=== PATIENT | female | born 2000 | race Caucasian/White ===

== ENCOUNTER 2022-02-19 17:05 | Inpatient (IN) ==
[2022-02-19] MEDS ORDERED: LORazepam 1 MG TAB SL STA (17:24)
--- NOTE | 2022-02-19 17:30 | Emergency Department Note ---
Impression & Plan Psychosis ED Provider Note NAME: AME TABOR AGE: 21 SEX: F : 2000 ARRIVES VIA: Walk-In INFORMANT: [Patient] ED PROVIDER(S): [Garcia Pinto MD] CHIEF COMPLAINT: Mental health evaluation HISTORY OF PRESENT ILLNESS: Patient is a 21-year-old female who states that she is extremely stressed. She has not slept in about 3 days, she has not eaten in about 3 days. Patient is from [place] and is back in the [facility] for the start of [facility]. The patient was brought by a friend. The patient is not thinking or acting right as per the friend. The patient states that she has realized that she is too worried about people liking her and being part of her life. Because of this, she has allowed people to treat her poorly. Patient states that she cannot form any real relationships. I did ask the patient if she felt suicidal, she stated that she could not be suicidal because if her dad committed suicide she would . Patient is having a difficult time answering questions and staying focused on the conversation. She does believe she needs hospitalized for her mental health. She admits to using excessive amounts of marijuana. Minimal alcohol use. Given the mental state, no further history obtainable. REVIEW OF SYSTEMS: Obtainable given the mental state. PMHx/PSHx: See Below SOCIAL HISTORY: See Below. PHYSICAL EXAM: GENERAL: Patient is in no acute distress. HEENT: No acute trauma, normocephalic atraumatic, mucous membranes moist, no nasal congestion, no scleral icterus. NECK: No stridor, no adenopathy, no meningismus, trachea is midline. LUNGS: Clear to auscultation bilaterally, no wheeze, no rhonchi, breath sounds equal. HEART: Without murmurs gallops or rubs, regular rate and rhythm. ABDOMEN: Soft, nontender, bowel sounds positive, no peritonitis. EXTREMITIES: No cyanosis or edema, full range of motion of all the joints without pain or difficulty, no signs for acute trauma. NEUROLOGIC: Oriented x 3, no acute motor or sensory deficits, no focal weakness. SKIN: No rash, no jaundice, no diaphoresis. Psychiatric: Cooperative, voluntary, has a very hard time focusing on our conversation. Does not admit to being suicidal. DIFFERENTIAL DIAGNOSIS: Mood disorder, infection, hypoglycemia, psychosis, depression, anxiety, suicidality, electrolyte abnormalities, cardiac sources, intracerebral event, toxicologic etiology, trauma, neurologic event, as well as other pathologies. EMERGENCY DEPARTMENT COURSE/PROCEDURES: MEDICAL DECISION MAKING: There is a very mild leukocytosis, this could certainly be consistent with just the stress of her presentation. There is a normal hemoglobin and platelet count. No renal failure, significant electrolyte abnormality. Bilirubin mildly elevated, the remaining liver enzymes were unremarkable. The patient appeared to be in a euthyroid state. testing was negative. Urinalysis showed contamination. Urine tox was positive for marijuana. Alcohol, Tylenol and aspirin levels were undetectable. COVID test returned negative. The patient presents with some bizarre behavior, she was having a difficult time focusing on our conversation. The patient was felt medically clear for an evaluation by psychiatry. I did give her 1 mg of sublingual Ativan to help with some of her anxiety/stress. Patient is currently voluntary. She appears to be demonstrating a mild psychosis. She is being evaluated by this hospital's psychiatric service. Her disposition is still pending. Patient's case was assumed by Dr. Casey at the change of shift, please see his notes for the patient's final disposition and plan. Past Med/Surg History Medical History No significant medical problems Social History Hx Substance Use: Yes Non-Prescribed Medications: Marijuana Feels Safe at Home: Hesitant to Answer Home Meds Home Medications Medication Instructions Recorded Confirmed amoxicillin 500 mg capsule mg 02/19/22 Results & Data (ED) Vital Signs Vital Signs - 24 hr 02/19/22 17:08 Temperature 36.5 C Temperature Source Temporal Artery Scan Pulse Rate 88 Respiratory Rate 18 Respiratory Effort / Characteristics Non-Labored Respiratory Depth Normal Blood Pressure 134/93 Blood Pressure Mean 106 Blood Pressure Position Sitting Pulse Oximetry 97 Oxygen Delivery Method Room Air Sepsis Recent Fever Within 48 Hours No Sepsis New/Unexplained Change in Mental Status No Sepsis Action Taken by Nursing No Action Required Home Medications Current Medication List: was personally reviewed by me Laboratory Data Attestation: I reviewed the patient's lab results. Result diagrams: 02/19/22 17:35 02/19/22 17:35 Lab Results 02/19/22 02/19/2222 Range/Units 17:35 17:35 17:35 WBC 10.83 H (4.8-10.8) K/ul RBC 4.38 (3.93-5.22) M/uL Hgb 14.0 (12.0-16.0) g/dl Hct 41.7 (34.1-44.9) % MCV 95.2 (80.0-100.0) fL MCH 32.0 (25.0-34.0) pg MCHC 33.6 (32.0-36.0) g/dL RDW Std Deviation 41.3 (36.4-46.3) fL RDW Coeff of Jimmy 11.9 (11.5-14.5) % Plt Count 323 (130-400) K/uL MPV 10.7 (9.4-12.3) fL Immature Gran % (Auto) 0.2 % Neut % (Auto) 80.3 % Lymph % (Auto) 11.4 % Ritchie % (Auto) 7.7 % Eos % (Auto) 0.2 % Baso % (Auto) 0.2 % Neut # (Auto) 8.70 H (1.4-6.5) K/uL Lymph # (Auto) 1.24 (1.2-3.4) K/uL Ritchie # (Auto) 0.83 H (0.24-0.82) K/uL Eos # (Auto) 0.02 (0-0.50) K/uL Baso # (Auto) 0.02 (0-0.2) K/uL Immature Gran # (Auto) 0.02 (0.00-0.02) K/uL Sodium 138 (136-145) mmol/L Potassium 3.5 (3.5-5.1) mmol/L Chloride 104 (98-107) mmol/L Carbon Dioxide 24 (21-32) mmol/L Anion Gap 10 (3-11) BUN 10 (6-23) mg/dl Creatinine 0.71 (0.6-1.2) mg/dl Est Cr Clr Drug Dosing 110.4 ml/min Est GFR ( Amer) 141.1 ml/min Est GFR (Non-Af Amer) 121.8 ml/min BUN/Creatinine Ratio 14.1 (10-20) Glucose 99 (70-99(Fasting)) mg/dl Calcium 9.8 (8.5-10.1) mg/dl Total Bilirubin 1.4 H (0.2-1.0) mg/dl AST 17 (13-39) U/L ALT 20 (7-52) U/L Alkaline Phosphatase 50 (34-104) U/L Total Protein 8.5 H (6.0-8.3) gm/dl Albumin 5.3 H (3.4-5.0) gm/dl Globulin 3.2 (2.5-4.0) gm/dl Albumin/Globulin Ratio 1.7 (0.9-2) TSH (0.300-4.500) uIu/ml HCG, Qual Negative (Negative) Urine Color Urine Appearance (Clear) Urine pH (4.5-7.5) Ur Specific [place] (1.000-1.030) Urine Protein (Negative) Urine Glucose (UA) (Negative) Urine Ketones (Negative) Urine Blood (Negative) Urine Nitrite (Negative) Urine Bilirubin (Negative) Urine Urobilinogen (Negative) Ur Leukocyte Esterase (Negative) Urine WBC (Auto) (0-5) /hpf Urine RBC (Auto) (0-4) /hpf U Hyaline Cast (Auto) (0-5) /lpf U Epithel Cells (Auto) (0-5) /lpf Urine Bacteria (Auto) (Negative) Salicylates (3.0-30) mg/dl Urine Opiates Screen (Neg) Ur Methadone, Qual (Neg) Acetaminophen (10-30) ug/ml Urine Barbiturates (Neg) Ur Phencyclidine (PCP) (Neg) U Amphetamin/Meth Scrn (Neg) MDMA (Ecstasy) Screen (Neg) U Benzodiazepines Scrn (Neg) Ur Cocaine Metabolite (Neg) U Marijuana (THC) Screen (Neg) Ethyl Alcohol mg/dL (<10.0) mg/dl SARS-CoV-2, RNA, NAAT (NEGATIVE) 02/19/22 02/19/22 02/19/22 Range/Units 17:35 17:35 17:35 WBC (4.8-10.8) K/ul RBC (3.93-5.22) M/uL Hgb (12.0-16.0) g/dl Hct (34.1-44.9) % MCV (80.0-100.0) fL MCH (25.0-34.0) pg MCHC (32.0-36.0) g/dL RDW Std Deviation (36.4-46.3) fL RDW Coeff of Jimmy (11.5-14.5) % Plt Count (130-400) K/uL MPV (9.4-12.3) fL Immature Gran % (Auto) % Neut % (Auto) % Lymph % (Auto) % Ritchie % (Auto) % Eos % (Auto) % Baso % (Auto) % Neut # (Auto) (1.4-6.5) K/uL Lymph # (Auto) (1.2-3.4) K/uL Ritchie # (Auto) (0.24-0.82) K/uL Eos # (Auto) (0-0.50) K/uL Baso # (Auto) (0-0.2) K/uL Immature Gran # (Auto) (0.00-0.02) K/uL Sodium (136-145) mmol/L Potassium (3.5-5.1) mmol/L Chloride (98-107) mmol/L Carbon Dioxide (21-32) mmol/L Anion Gap (3-11) BUN (6-23) mg/dl Creatinine (0.6-1.2) mg/dl Est Cr Clr Drug Dosing ml/min Est GFR ( Amer) ml/min Est GFR (Non-Af Amer) ml/min BUN/Creatinine Ratio (10-20) Glucose (70-99(Fasting)) mg/dl Calcium (8.5-10.1) mg/dl Total Bilirubin (0.2-1.0) mg/dl AST (13-39) U/L ALT (7-52) U/L Alkaline Phosphatase (34-104) U/L Total Protein (6.0-8.3) gm/dl Albumin (3.4-5.0) gm/dl Globulin (2.5-4.0) gm/dl Albumin/Globulin Ratio (0.9-2) TSH 1.508 (0.300-4.500) uIu/ml HCG, Qual (Negative) Urine Color Urine Appearance (Clear) Urine pH (4.5-7.5) Ur Specific [place] (1.000-1.030) Urine Protein (Negative) Urine Glucose (UA) (Negative) Urine Ketones (Negative) Urine Blood (Negative) Urine Nitrite (Negative) Urine Bilirubin (Negative) Urine Urobilinogen (Negative) Ur Leukocyte Esterase (Negative) Urine WBC (Auto) (0-5) /hpf Urine RBC (Auto) (0-4) /hpf U Hyaline Cast (Auto) (0-5) /lpf U Epithel Cells (Auto) (0-5) /lpf Urine Bacteria (Auto) (Negative) Salicylates < 3.0 L (3.0-30) mg/dl Urine Opiates Screen (Neg) Ur Methadone, Qual (Neg) Acetaminophen < 3 L (10-30) ug/ml Urine Barbiturates (Neg) Ur Phencyclidine (PCP) (Neg) U Amphetamin/Meth Scrn (Neg) MDMA (Ecstasy) Screen (Neg) U Benzodiazepines Scrn (Neg) Ur Cocaine Metabolite (Neg) U Marijuana (THC) Screen (Neg) Ethyl Alcohol mg/dL < 10.0 (<10.0) mg/dl SARS-CoV-2, RNA, NAAT (NEGATIVE) 02/19/22 02/19/22 02/19/22 Range/Units 17:35 17:35 17:35 WBC (4.8-10.8) K/ul RBC (3.93-5.22) M/uL Hgb (12.0-16.0) g/dl Hct (34.1-44.9) % MCV (80.0-100.0) fL MCH (25.0-34.0) pg MCHC (32.0-36.0) g/dL RDW Std Deviation (36.4-46.3) fL RDW Coeff of Jimmy (11.5-14.5) % Plt Count (130-400) K/uL MPV (9.4-12.3) fL Immature Gran % (Auto) % Neut % (Auto) % Lymph % (Auto) % Ritchie % (Auto) % Eos % (Auto) % Baso % (Auto) % Neut # (Auto) (1.4-6.5) K/uL Lymph # (Auto) (1.2-3.4) K/uL Ritchie # (Auto) (0.24-0.82) K/uL Eos # (Auto) (0-0.50) K/uL Baso # (Auto) (0-0.2) K/uL Immature Gran # (Auto) (0.00-0.02) K/uL Sodium (136-145) mmol/L Potassium (3.5-5.1) mmol/L Chloride (98-107) mmol/L Carbon Dioxide (21-32) mmol/L Anion Gap (3-11) BUN (6-23) mg/dl Creatinine (0.6-1.2) mg/dl Est Cr Clr Drug Dosing ml/min Est GFR ( Amer) ml/min Est GFR (Non-Af Amer) ml/min BUN/Creatinine Ratio (10-20) Glucose (70-99(Fasting)) mg/dl Calcium (8.5-10.1) mg/dl Total Bilirubin (0.2-1.0) mg/dl AST (13-39) U/L ALT (7-52) U/L Alkaline Phosphatase (34-104) U/L Total Protein (6.0-8.3) gm/dl Albumin (3.4-5.0) gm/dl Globulin (2.5-4.0) gm/dl Albumin/Globulin Ratio (0.9-2) TSH (0.300-4.500) uIu/ml HCG, Qual (Negative) Urine Color Yellow Urine Appearance Clear (Clear) Urine pH 6.5 (4.5-7.5) Ur Specific [place] 1.023 (1.000-1.030) Urine Protein Trace H (Negative) Urine Glucose (UA) Negative (Negative) Urine Ketones 1+ H (Negative) Urine Blood Trace H (Negative) Urine Nitrite Negative (Negative) Urine Bilirubin Negative (Negative) Urine Urobilinogen Negative (Negative) Ur Leukocyte Esterase 2+ H (Negative) Urine WBC (Auto) >30 H (0-5) /hpf Urine RBC (Auto) 0-4 (0-4) /hpf U Hyaline Cast (Auto) 10-30 H (0-5) /lpf U Epithel Cells (Auto) >30 H (0-5) /lpf Urine Bacteria (Auto) Negative (Negative) Salicylates (3.0-30) mg/dl Urine Opiates Screen Neg (Neg) Ur Methadone, Qual Neg (Neg) Acetaminophen (10-30) ug/ml Urine Barbiturates Neg (Neg) Ur Phencyclidine (PCP) Neg (Neg) U Amphetamin/Meth Scrn Neg (Neg) MDMA (Ecstasy) Screen Neg (Neg) U Benzodiazepines Scrn Neg (Neg) Ur Cocaine Metabolite Neg (Neg) U Marijuana (THC) Screen Pos H (Neg) Ethyl Alcohol mg/dL (<10.0) mg/dl SARS-CoV-2, RNA, NAAT NEGATIVE (NEGATIVE) Administered Medications Discontinued Medications Lorazepam (Lorazepam 1 Mg Tab) 1 mg SL NOW STA Stop: 02/19/22 17:25 Last Admin: 02/19/22 17:44 Dose: 1 mg Documented By: KT Discharge Plan Visit Data Chief Complaint: Mental Health Evaluation Stated Complaint: MENTAL HEALTH EVALUATION ED Provider: Otis Casey Discharge Problem: Psychosis Patient Disposition: Still a Patient Condition: Fair Forms Stand Alone Forms: [facility], Suicide Prevention Resources Prescriptions Prescriptions: No Action amoxicillin 500 mg capsule Referrals Referrals: PCP,NO [Primary Care Provider] -
[2022-02-19 17:48] LABS: Basophils # (auto) 0.02 K/uL (0-0.2); Basophils % (auto) 0.2 %; Eosinophils # (auto) 0.02 K/uL (0-0.50); Eosinophils % (auto) 0.2 %; Hematocrit (blood only) 41.7 % (34.1-44.9); Immature Granulocytes # (auto) 0.02 K/uL (0.00-0.02); Immature Granulocytes % (auto) 0.2 %; Lymphocytes # (auto) 1.24 K/uL (1.2-3.4); Lymphocytes % (auto) 11.4 %; Mean Corpuscular Hgb Conc 33.6 g/dL (32.0-36.0); Mean Corpuscular Volume 95.2 fL (80.0-100.0); Mean Platelet Volume 10.7 fL (9.4-12.3); Monocytes # (auto) 0.83 K/uL (0.24-0.82); Monocytes % (auto) 7.7 %; Neutrophils % (auto) 80.3 %; Platelet Count 323 K/uL (130-400); RDW Coefficient of Variation 11.9 % (11.5-14.5); RDW Standard Deviation 41.3 fL (36.4-46.3); Red Blood Count 4.38 M/uL (3.93-5.22); White Blood Count 10.83 K/ul (4.8-10.8)
[2022-02-19 17:56] LABS: Appearance Urine Clear (Clear); Bacteria Urine Automated Negative (Negative); Bilirubin Urine Negative (Negative); Blood Urine Trace (Negative); Color Urine Yellow; Epithelial Cell Urine Auto >30 /lpf (0-5); Glucose Urine UA Negative (Negative); Ketones Urine 1+ (Negative); Leukocyte Esterase Urine 2+ (Negative); Nitrite Urine Negative (Negative); Protein Urine Trace (Negative); RBC Urine Automated 0-4 /hpf (0-4); Specific Gravity Urine 1.023 (1.000-1.030); Urobilinogen Urine Negative (Negative); WBC Urine Automated >30 /hpf (0-5); pH Urine 6.5 (4.5-7.5)
[2022-02-19 18:03] LABS: Pregnancy Test, Serum Negative (Negative)
[2022-02-19 18:06] LABS: Acetaminophen < 3 ug/ml (10-30); Salicylate < 3.0 mg/dl (3.0-30)
[2022-02-19 18:07] LABS: Albumin Globulin Ratio 1.7 (0.9-2); Albumin Level 5.3 gm/dl (3.4-5.0); BUN Creatinine Ratio 14.1 (10-20); Bilirubin,Total 1.4 mg/dl (0.2-1.0); Calcium 9.8 mg/dl (8.5-10.1); Creatinine Clr Calc Pharmacy 110.4 ml/min; Est GFR (African American) 141.1 ml/min; Est GFR (Non-African American) 121.8 ml/min; Globulin 3.2 gm/dl (2.5-4.0); Potassium 3.5 mmol/L (3.5-5.1); Total Protein 8.5 gm/dl (6.0-8.3)
[2022-02-19 18:14] LABS: Amphetamines+Metham, Urine Neg (Neg); Barbiturates, Urine Neg (Neg); Benzodiazepine, Urine Neg (Neg); Cocaine, Urine Neg (Neg); MDMA (Ecstacy), Urine Neg (Neg); Methadone, Urine Neg (Neg); Opiate, Urine Neg (Neg); Phencyclidine, Urine Neg (Neg)
[2022-02-19] MEDS ORDERED: hydrOXYzine HCl 25 MG TAB PO PRN (20:36)
[2022-02-19] MEDS ORDERED: BISMUTH SUBSALICYLATE LIQD 236 ML PO PRN (20:36)
[2022-02-19] MEDS ORDERED: ACETAMINOPHEN 325 MG TAB PO PRN (20:36)
[2022-02-19] MEDS ORDERED: SODIUM CHLORIDE 0.65% NA SOLN 45 ML (OCEAN) PRN (20:36)
[2022-02-19] MEDS ORDERED: MAGNESIUM HYDROXIDE SUSP 30 ML UDC PO PRN (20:36)
[2022-02-19] MEDS: hydrOXYzine HCl 25 MG TAB PO PRN (23:45)
--- NOTE | 2022-02-20 01:27 | Emergency Department Note ---
ED Visit Note The patient was signed out to me awaiting placement. The patient was accepted at [facility] . : Psychosis Qualifiers: Psychosis type: unspecified psychosis type Qualified Code(s): F29 - Unspecified psychosis not due to a substance or known physiological condition
--- NOTE | 2022-02-20 08:54 | History & Physical ---
Date of Service February 20, 2022 Impression / Recommendations Impression The patient is a 21 year old with a history of trauma, anxiety and cannabis use who was admitted for worsening sleep, appetite, depression and bizarre behaviors concerning for psychosis/mood disorder. Diagnostically consistent with unspecified mood disorder and unspecified psychosis, differential includes depression with psychotic features vs mixed mood episode/BPAD vs substance- induced or withdrawal psychosis vs complex PTSD as well as marijuana use disorder though has stopped smoking and plans to continue to avoid marijuana use. The patient is deemed unstable and requires psychiatric hospitalization for diagnostic clarification, safety and stabilization, medication management and development of further coping skills. The patient's use history suggests problematic marijuana use. Brief intervention was offered and accepted. Intervention was greater than 5 minutes in length and included assessing readiness to quit, advice on how to reduce or abstain and to set a specific goal for this hospitalization. hold worker will also assist in anticipating barriers to reducing or abstaining from substance use and in problem-solving for solutions to those problems while arranging for referral to appropriate treatment. The patient is in action stage with regards to transtheoretical model of change. The patient is advised to continue to avoid use due to potential for psychosis effects, potential for worsening anxiety and negative mood effects and risk of interaction with medications. She agrees to continue to avoid marijuana use and will be provided with recovery materials to continue to educate self on how to cope with their condition without using substances. Discussed medication treatment options in detail including antipsychotics, SSRI, Vistaril. Discussed risks, benefits and alternatives. Patient would like to start and consented to risperidone for psychosis/mood symptoms. Reviewed side effects including but not limited to: movement (TD, NMS), cardiac (QTc prolongation), and metabolic (stroke, insulin resistance) and necessity for fasting lipid and glucose labwork and AIMS done with score of 0. (1) Unspecified mood [affective] disorder: (2) Cannabis use, unspecified with psychotic disorder, unspecified: (3) Psychosis: Psychosis type: unspecified psychosis type Qualified Code(s): F29 - Unspecified psychosis not due to a substance or known physiological condition Plan 02/20/22: The patient was admitted to the [facility] ([facility]) on q15 min checks (behavioral with suicide precautions) for safety. The patient will participate in group, recreational, and milieu therapies and will be offered additional individual and family sessions as clinically appropriate. -Start risperidone 0.25mg BID, consider SSRI in the coming days depending on trajectory of symptoms and further diagnostic clarification -Fasting lipid panel and glucose labwork tomorrow morning Inventory Assets Strengths: resilient, full-time student, supportive friend/boyfriend, willing to get help, stopped smoking cannabis Needs: safety and stabilization, medication adjustment, additional coping skills, increased outpatient services Suicide Risk Level Suicide Risk Level: Moderate (q15 min suicide checks) Suicide Risk Level Comments: Moderate due to depression with bizarre behaviors and self-harm prior to admission but feels safe in the hospital, able to safety contract and agrees to let nursing/staff know should they develop SI, plan, intent or feel unable to remain safe. Risk Factors Assessment : Yes Do You Have Access To A Gun?: No Health Problems: No Mental Health Diagnoses: Yes Substance Use Disorders: Yes Previous Attempt: No Family History of Suicide: No Previous Psychiatric Hospitalization: No Hopelessness: Yes Protective Factors Assessment Employed: Yes (part time student) Stable Relationships: Yes Psychiatric History Identifying Data AME TABOR is a 21-year-old woman and [employer] student who currently lives in an apartment with roommates, has no significant psychiatric history but exp erienced childhood trauma, and was admitted on 02/19/22 20:36 on a 201 voluntary commitment for bizarre behavior and depression with lack of sleep and poor nutritional intake over the last four days. Chief Complaint "I was so angry that I've finally been shown unconditional love". History of Present Illness Ame, who prefers to be called Elizabeth, presents for psychiatric admission for bizarre behaviors in recent days including talking to herself and disorganized thought process, lack of sleep, not eating or drinking and increased depression and anxiety in the context of multiple psychosocial stressors including transition back to campus for fall, academic pressure, finances, withdrawing from marijuana and history of trauma/strained relationship with her parents. She tends to cope by using marijuana but quit abruptly last week. Took a road trip to [place] last week (per her report) versus yesterday (per collateral reports to ED) to see her boyfriend and on returning her roommate noticed she was acting very bizarre and brought her to the ED. Elizabeth hasn't been sleeping or eating in the last few days and reports feeling overwhelmed about concerns of not being able to set personal boundaries with other people or express her true feelings. States she was unintentionally vomiting up what food she was trying to eat over the last few days which she feels was due to "coming off of weed". She has been self-harming via skin picking and hitting herself. She is refusing to sign releases for anyone. She states she doesn't feel safe at her apartment because "how lonely it is" and "that I would get back into my own head". Notes significant concerns about being not caring about her, stating her dad has been telling her that her roommate "doesn't love you and hates you" and states that this causes her to push her roommate away and becomes tearful describing this noting "I have meanness in me that I can't get through and I hate". She also endorses significant self-guilt "I see pain really heavily, I'm always searching for what's missing". She endorses depressive symptoms including tearfulness, anhedonia, decreased motivation, self-guilt, helplessness, hopelessness, decreased energy, decreased appetite, and decreased sleep with about 4 days of no sleep and prior to this only about 3-4 hours per night. She denies any SI though made an odd comment regarding this in the ED stating "I cannot be suicidal because if my dad committed suicide I would ." She also endorses symptoms of anxiety including generalized worries, shakiness, easily overwhelmed and occasional panic attacks. She is not currently prescribed any psychiatric medications. Psychiatric ROS notable for: no history of [place], hx psychosis of "seeing stuff" while using cannabis and hx hearing voices when using cannabis, hx of trauma and endorses symptoms of PTSD, OCD; hx of eating disorder via binge eating and restriction in the past, hx self-harming since 5th grade. Past Psychiatric History Current Psychiatric Diagnosis: Unspecified depressive disorder Outpatient Services: none Previous Psych Admissions: n/a Do You Have Access To A Gun?: No History of Previous Suicide Attempt: No Past Medication Trials: denies Past Head Trauma/Neuro History History of Concussion/Seizure: Yes (hx concussion from sports in highschool and maybe last year hit head) Allergies Allergy/AdvReac Type Severity Reaction Status Date / Time No Known Allergies Allergy Verified 08/21/22 10:22 Home Medications Medication Instructions Recorded Confirmed Type amoxicillin 500 mg capsule mg 02/19/22 History Family History Family History of: Depression, Anxiety and Alcoholism/Drug Abuse Family Mental Health History Comment: pt says mom gets very angry, dad is controlling Alcohol History Hx of Alcohol Use Over the Past 12 Months: Yes (1 week ago, half glass of mix drink with dinner) AUDIT Total Score: 5 Smoking Use Have You Smoked or Used Tobacco Products in the Last 30 Days: No Smoking Status: Never smoker Substance History Hx of Prescription Med Misuse Over the Past 12 Months: No Hx of Over the Counter Med Misuse Over the Past 12 Months: No Hx of Inhalent Misuse Over the Past 12 Months: No Hx of Organic Substance Use Over the Past 12 Months: Yes (marijuana vape daily) Hx of Illegal Substances/Street Drug Use Over Past 12 Months: No Problems as a Result of Past Substance Use: None Identified Stopping vaping 6 days ago. Had been vaping "every minute of the day when not at work or driving". Has been vaping "off and on" for about 1.5 years. Likes that "it gets me out of my head", doesn't like that "it's making me feel worse because I'm not able to see people around me". Notes it made her disconnected so she stopped. She was using "all kinds" including synthetic and "random stuff off the street". Personal History Living Arrangements: Apartment (with two roommates) Childhood: Dual citizenship, family lives in [place]. Parents are . Father is remarried. Closer with her father, more strained relationship with her mother. 2 younger siblings. 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: No Beliefs That Will Affect Care: None Feels Safe at Home: Hesitant to Answer Assistive Devices: None Review of Systems Review of Systems: All systems reviewed & are unremarkable except as noted in HPI & below Physical Exam Psychiatric: Orientation: alert and oriented x 3 Apperance: appropriately dressed and appropriately groomed Eye Contact: + poor eye contact Motor Behavior: no abnormal motor movements Speech: + abnormal rate/rhythm/volume of speech (significant latency at times) Affect: + depressed affect, + flat affect and + tearful affect Mood: + depressed mood and + anxious mood Thought Process: + circumstantial thought process and + looseness of associations Thought Content: + paranoid, + cognitive distortions, + worthlessness and + self deprecation Suicidal Thoughts: denies suicidal thoughts Homicidal Thoughts: denies homicidal thoughts Hallucinations: + auditory hallucinations (intermittent, one or two voices, can't make out what they are saying); no visual hallucinations Cognition: recent memory grossly intact, remote memory grossly intact and language grossly intact; + attention not intact Estimated Intelligence: consistent with education level Insight: + limited insight Judgement: + limited judgement Vital Signs (Past 24 Hours): Last Vital Signs Temp 37.0 C 02/20/22 06:00 Pulse 72 02/20/22 06:26 Resp 16 02/20/22 06:00 BP 102/65 02/20/22 06:26 Pulse Ox 100 02/19/22 22:35 O2 Del Method 02/19/22 22:35 Exam Statement: A physical exam was performed in the ED by Dr. Pinto for the purposes of medical clearance. I accept that physical as correct and adequate for the purposes of the inpatient physical exam. Results & Data ([facility]) Laboratory Results Laboratory Results - last 24 hr 02/19/22 02/19/22 02/19/22 17:35 17:35 17:35 WBC 10.83 H RBC 4.38 Hgb 14.0 Hct 41.7 MCV 95.2 MCH 32.0 MCHC 33.6 RDW Std Deviation 41.3 RDW Coeff of Jimmy 11.9 Plt Count 323 MPV 10.7 Immature Gran % (Auto) 0.2 Neut % (Auto) 80.3 Lymph % (Auto) 11.4 Dolores % (Auto) 7.7 Eos % (Auto) 0.2 Baso % (Auto) 0.2 Neut # (Auto) 8.70 H Lymph # (Auto) 1.24 Dolores # (Auto) 0.83 H Eos # (Auto) 0.02 Baso # (Auto) 0.02 Immature Gran # (Auto) 0.02 Sodium 138 Potassium 3.5 Chloride 104 Carbon Dioxide 24 Anion Gap 10 BUN 10 Creatinine 0.71 Est Cr Clr Drug Dosing 110.4 Est GFR ( Amer) 141.1 Est GFR (Non-Af Amer) 121.8 BUN/Creatinine Ratio 14.1 Glucose 99 Calcium 9.8 Total Bilirubin 1.4 H AST 17 ALT 20 Alkaline Phosphatase 50 Total Protein 8.5 H Albumin 5.3 H Globulin 3.2 Albumin/Globulin Ratio 1.7 TSH HCG, Qual Negative Urine Color Urine Appearance Urine pH Ur Specific [place] Urine Protein Urine Glucose (UA) Urine Ketones Urine Blood Urine Nitrite Urine Bilirubin Urine Urobilinogen Ur Leukocyte Esterase Urine WBC (Auto) Urine RBC (Auto) U Hyaline Cast (Auto) U Epithel Cells (Auto) Urine Bacteria (Auto) Salicylates Urine Opiates Screen Ur Methadone, Qual Acetaminophen Urine Barbiturates Ur Phencyclidine (PCP) U Amphetamin/Meth Scrn MDMA (Ecstasy) Screen U Benzodiazepines Scrn Ur Cocaine Metabolite U Marijuana (THC) Screen U Marijuana THC Carboxy Drug Screen Comment Ethyl Alcohol mg/dL SARS-CoV-2, RNA, NAAT 02/19/22 02/19/22 02/19/22 17:35 17:35 17:35 WBC RBC Hgb Hct MCV MCH MCHC RDW Std Deviation RDW Coeff of Jimmy Plt Count MPV Immature Gran % (Auto) Neut % (Auto) Lymph % (Auto) Dolores % (Auto) Eos % (Auto) Baso % (Auto) Neut # (Auto) Lymph # (Auto) Dolores # (Auto) Eos # (Auto) Baso # (Auto) Immature Gran # (Auto) Sodium Potassium Chloride Carbon Dioxide Anion Gap BUN Creatinine Est Cr Clr Drug Dosing Est GFR ( Amer) Est GFR (Non-Af Amer) BUN/Creatinine Ratio Glucose Calcium Total Bilirubin AST ALT Alkaline Phosphatase Total Protein Albumin Globulin Albumin/Globulin Ratio TSH 1.508 HCG, Qual Urine Color Urine Appearance Urine pH Ur Specific [place] Urine Protein Urine Glucose (UA) Urine Ketones Urine Blood Urine Nitrite Urine Bilirubin Urine Urobilinogen Ur Leukocyte Esterase Urine WBC (Auto) Urine RBC (Auto) U Hyaline Cast (Auto) U Epithel Cells (Auto) Urine Bacteria (Auto) Salicylates < 3.0 L Urine Opiates Screen Ur Methadone, Qual Acetaminophen < 3 L Urine Barbiturates Ur Phencyclidine (PCP) U Amphetamin/Meth Scrn MDMA (Ecstasy) Screen U Benzodiazepines Scrn Ur Cocaine Metabolite U Marijuana (THC) Screen U Marijuana THC Carboxy Drug Screen Comment Ethyl Alcohol mg/dL < 10.0 SARS-CoV-2, RNA, NAAT 02/19/22 02/19/22 02/19/22 17:35 17:35 17:35 WBC RBC Hgb Hct MCV MCH MCHC RDW Std Deviation RDW Coeff of Jimmy Plt Count MPV Immature Gran % (Auto) Neut % (Auto) Lymph % (Auto) [place]ores % (Auto) Eos % (Auto) Baso % (Auto) Neut # (Auto) Lymph # (Auto) Dolores # (Auto) Eos # (Auto) Baso # (Auto) Immature Gran # (Auto) Sodium Potassium Chloride Carbon Dioxide Anion Gap BUN Creatinine Est Cr Clr Drug Dosing Est GFR ( Amer) Est GFR (Non-Af Amer) BUN/Creatinine Ratio Glucose Calcium Total Bilirubin AST ALT Alkaline Phosphatase Total Protein Albumin Globulin Albumin/Globulin Ratio TSH HCG, Qual Urine Color Yellow Urine Appearance Clear Urine pH 6.5 Ur Specific [place] 1.023 Urine Protein Trace H Urine Glucose (UA) Negative Urine Ketones 1+ H Urine Blood Trace H Urine Nitrite Negative Urine Bilirubin Negative Urine Urobilinogen Negative Ur Leukocyte Esterase 2+ H Urine WBC (Auto) >30 H Urine RBC (Auto) 0-4 U Hyaline Cast (Auto) 10-30 H U Epithel Cells (Auto) >30 H Urine Bacteria (Auto) Negative Salicylates Urine Opiates Screen Neg Ur Methadone, Qual Neg Acetaminophen Urine Barbiturates Neg Ur Phencyclidine (PCP) Neg U Amphetamin/Meth Scrn Neg MDMA (Ecstasy) Screen Neg U Benzodiazepines Scrn Neg Ur Cocaine Metabolite Neg U Marijuana (THC) Screen Pos H U Marijuana THC Carboxy Drug Screen Comment Ethyl Alcohol mg/dL SARS-CoV-2, RNA, NAAT NEGATIVE 02/19/22 17:35 WBC RBC Hgb Hct MCV MCH MCHC RDW Std Deviation RDW Coeff of Jimmy Plt Count MPV Immature Gran % (Auto) Neut % (Auto) Lymph % (Auto) [place] % (Auto) Eos % (Auto) Baso % (Auto) Neut # (Auto) Lymph # (Auto) Dol[place] # (Auto) Eos # (Auto) Baso # (Auto) Immature Gran # (Auto) Sodium Potassium Chloride Carbon Dioxide Anion Gap BUN Creatinine Est Cr Clr Drug Dosing Est GFR ( Amer) Est GFR (Non-Af Amer) BUN/Creatinine Ratio Glucose Calcium Total Bilirubin AST ALT Alkaline Phosphatase Total Protein Albumin Globulin Albumin/Globulin Ratio TSH HCG, Qual Urine Color Urine Appearance Urine pH Ur Specific [place] Urine Protein Urine Glucose (UA) Urine Ketones Urine Blood Urine Nitrite Urine Bilirubin Urine Urobilinogen Ur Leukocyte Esterase Urine WBC (Auto) Urine RBC (Auto) U Hyaline Cast (Auto) U Epithel Cells (Auto) Urine Bacteria (Auto) Salicylates Urine Opiates Screen Ur Methadone, Qual Acetaminophen Urine Barbiturates Ur Phencyclidine (PCP) U Amphetamin/Meth Scrn MDMA (Ecstasy) Screen U Benzodiazepines Scrn Ur Cocaine Metabolite U Marijuana (THC) Screen U Marijuana THC Carboxy Pending Drug Screen Comment Pending Ethyl Alcohol mg/dL SARS-CoV-2, RNA, NAAT Current Inpatient Medications Current Inpatient Medications: Current Inpatient Medications Acetaminophen (Acetaminophen 325 Mg Tab) 650 mg PO Q4H PRN PRN Reason: Headache or Minor Fever Stop: 03/21/22 20:35 Al Hydrox/Mg Hydrox/Simethicone (Aluminum/Magnesium Susp 30 Ml Udc) 30 ml PO Q4H PRN PRN Reason: GI Upset Stop: 03/21/22 20:35 Bismuth Subsalicylate (Bismuth Subsalicylate Liqd 236 Ml) 15 ml PO PRN PRN PRN Reason: Loose Stool Stop: 03/21/22 20:35 Hydroxyzine HCl (Hydroxyzine Hcl 25 Mg Tab) 50 mg PO HSZ PRN PRN Reason: Insomnia Stop: 03/21/22 20:35 Last Admin: 02/19/22 23:45 Dose: 50 mg Hydroxyzine HCl (Hydroxyzine Hcl 25 Mg Tab) 25 mg PO Q4H PRN PRN Reason: Anxiety Stop: 03/21/22 20:35 Magnesium Hydroxide (Magnesium Hydroxide Susp 30 Ml Udc) 30 ml PO DAILY PRN PRN Reason: Constipation Stop: 03/21/22 20:35 Sodium Chloride (Sodium Chloride 0.65% Na Soln 45 Ml ([place])) 1 - 2 sprays NA PRN PRN PRN Reason: Nasal Dryness/Congestion Stop: 03/21/22 20:35
[2022-02-20] MEDS: risperiDONE 0.5 MG TABLET PO SCH ×2 (11:55→20:57)
[2022-02-20] MEDS: risperiDONE 0.5 MG TABLET PO PRN (17:47)
[2022-02-21] MEDS: hydrOXYzine HCl 25 MG TAB PO PRN ×2 (01:41→22:33)
[2022-02-21] MEDS: risperiDONE 0.5 MG TABLET PO PRN ×2 (01:43→17:08)
[2022-02-21] MEDS: risperiDONE 0.5 MG TABLET PO SCH ×2 (07:56→20:29)
[2022-02-21] MEDS ORDERED: LORazepam 0.5 MG TAB PO PRN (10:02)
[2022-02-21] MEDS ORDERED: risperiDONE 0.5 MG TABLET PO PRN (10:03)
--- NOTE | 2022-02-21 13:40 | Psychiatric Progress Note ---
Date of Service February 21, 2022 Impression / Recommendations Impression The patient is a 21 year old with a history of trauma, anxiety and cannabis use who was admitted for worsening sleep, appetite, depression and bizarre behaviors concerning for psychosis/mood disorder. Diagnostically consistent with unspecified mood disorder and unspecified psychosis, differential includes depression with psychotic features vs mixed mood episode/BPAD vs substance- induced or withdrawal psychosis vs complex PTSD as well as marijuana use disorder though has stopped smoking and plans to continue to avoid marijuana use. The patient is deemed unstable and requires psychiatric hospitalization for diagnostic clarification, safety and stabilization, medication management and development of further coping skills. 02/21/22: Ongoing psychosis and disorganization. Very poor sleep last night and appears more manic today with increased psychomotor activity, flight of ideas, hyperverbal. Differential remains broad. Tolerating risperidone and shows some reduction in distress with prn doses as well. If sleep remains poor may consider switch to more sedating antipsychotic like olanzapine. She ate before fasting labs so rescheduled for tomorrow morning. (1) Unspecified mood [affective] disorder: (2) Cannabis use, unspecified with psychotic disorder, unspecified: (3) Psychosis: Plan 02/21/22: Increase risperidone to 0.5mg BID and continue with risperidone 0.25mg QID prn and ativan 0.5mg BID prn for severe agitation/distress. Fasting labs tomorrow. 02/20/22: The patient was admitted to the [facility] ([facility]) on q15 min checks (behavioral with suicide precautions) for safety. The patient will participate in group, recreational, and milieu therapies and will be offered additional individual and family sessions as clinically appropriate. -Start risperidone 0.25mg BID, consider SSRI in the coming days depending on trajectory of symptoms and further diagnostic clarification -Fasting lipid panel and glucose labwork tomorrow morning Inventory Assets Strengths: resilient, full-time student, supportive friend/boyfriend, willing to get help, stopped smoking cannabis Needs: safety and stabilization, medication adjustment, additional coping skills, increased outpatient services Suicide Risk Level Suicide Risk Level: Moderate (q15 min suicide checks) Suicide Risk Level Comments: Moderate due to depression with bizarre behaviors and self-harm prior to admission but feels safe in the hospital, able to safety contract and agrees to let nursing/staff know should they develop SI, plan, intent or feel unable to remain safe. 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 Review of Systems Sleep Information Total Hours of Sleep: 3.75 Sleep Comments: patient received vistaril Meal Information Percent Meal Consumed - Breakfast: 25 Percent Meal Consumed - Lunch: 50 Percent Meal Consumed - Dinner: 5 Nutrition Comment: a few bites; tearful w poor appetite Subjective Subjective Patient was seen & assessed and interval progress reviewed with treatment team nursing and social work. Continues to present with significant disorganization and psychosis. Last night had concerns that staff and patients were imposters but accepted prn risperidone with some benefit and reduction in anxiety. Remains very tearful and overwhelmed particularly when interacting with peers. Requires frequent reassurance from staff. Very poor sleep last night. Today continues to be fixated on how her actions impact peers such as a belief that her sudden decision to become vegan caused a peer on the unit to discharge. Reads at length from a journal about how she has discovered that her life long problem has been an inability to "let others in" and this has led her to push others away. Speaks of her boyfriend and how much she wishes she was raised by "gentle parenting" like he was and that because of this he has "the capacity to feel love for others". Speaks about wanting to be a vegan and no longer wants to go to [employer] school because "I thought I was helping animals but I wasn't". Insists on describing her father's educational background and then notes "he is so smart and told me that his farts smell like roses so I went to school and told kids that and then they made fun of me and he told me kids can be mean so I pushed them away and I keep doing that". She requests a higher dose of risperidone as she feels it is helping with "brain connectivity and the synapses" but feels i t's not doing enough. She denies any side effects. Expresses significant paranoia about nursing staff and other peers. Whispers with me at times and becomes frustrated that "there aren't other patients like me, the people here don't know how to have true self-love because they've been hurt and turn to drugs". Unable to reality-test regarding connections she is making and that these might just be coincidences. Physical Exam Psychiatric Orientation: alert and oriented x 3 Apperance: appropriately dressed and appropriately groomed Eye Contact: good eye contact Motor Behavior: + psychomotor agitation (crouching on chair, lying on floor, standing ) Speech: + abnormal rate/rhythm/volume of speech (hyperverbal and difficult to interrupt ) Affect: + anxious affect, + labile affect and + irritable affect Mood: + depressed mood, + anxious mood and + irritable mood Thought Process: + tangential thought process, + flight of ideas and + looseness of associations Thought Content: + paranoid, + cognitive distortions, + delusions and + ideas of reference Suicidal Thoughts: denies suicidal thoughts Homicidal Thoughts: denies homicidal thoughts Hallucinations: + auditory hallucinations (intermittent, one or two voices, can't make out what they are saying); no visual hallucinations Cognition: recent memory grossly intact, remote memory grossly intact and language grossly intact; + attention not intact Estimated Intelligence: consistent with education level Insight: + limited insight Judgement: + limited judgement Vital Signs (Past 24 Hours) Last Vital Signs Temp 36.5 C 02/21/22 06:43 Pulse 87 02/21/22 06:43 Resp 16 02/21/22 06:43 BP 122/83 02/21/22 06:43 Pulse Ox 100 02/19/22 22:35 O2 Del Method 02/19/22 22:35 Results & Data ([facility]) Current Inpatient Medications Current Inpatient Medications: Current Inpatient Medications Acetaminophen (Acetaminophen 325 Mg Tab) 650 mg PO Q4H PRN PRN Reason: Headache or Minor Fever Stop: 03/21/22 20:35 Al Hydrox/Mg Hydrox/Simethicone (Aluminum/Magnesium Susp 30 Ml Udc) 30 ml PO Q4H PRN PRN Reason: GI Upset Stop: 03/21/22 20:35 Bismuth Subsalicylate (Bismuth Subsalicylate Liqd 236 Ml) 15 ml PO PRN PRN PRN Reason: Loose Stool Stop: 03/21/22 20:35 Hydroxyzine HCl (Hydroxyzine Hcl 25 Mg Tab) 50 mg PO HSZ PRN PRN Reason: Insomnia Stop: 03/21/22 20:35 Last Admin: 02/21/22 01:41 Dose: 50 mg Hydroxyzine HCl (Hydroxyzine Hcl 25 Mg Tab) 25 mg PO Q4H PRN PRN Reason: Anxiety Stop: 03/21/22 20:35 Last Admin: 02/21/22 07:56 Dose: 25 mg Lorazepam (Lorazepam 0.5 Mg Tab) 0.5 mg PO BID PRN PRN Reason: Agitation Stop: 03/23/22 10:01 Magnesium Hydroxide (Magnesium Hydroxide Susp 30 Ml Udc) 30 ml PO DAILY PRN PRN Reason: Constipation Stop: 03/21/22 20:35 Risperidone (Risperidone 0.5 Mg Tablet) 0.25 mg PO BID STEVEN Stop: 03/22/22 10:44 Last Admin: 02/21/22 07:56 Dose: 0.25 mg Risperidone (Risperidone 0.5 Mg Tablet) 0.25 mg PO QID PRN PRN Reason: Agitation/Anxiety/Psychosis Stop: 03/22/22 17:37 Last Admin: 02/21/22 11:15 Dose: 0.25 mg Sodium Chloride (Sodium Chloride 0.65% Na Soln 45 Ml ([place])) 1 - 2 sprays NA PRN PRN PRN Reason: Nasal Dryness/Congestion Stop: 03/21/22 20:35 Mental Health & Subst Abuse Tx Therapist Name of Therapist: latricia Exercise Equipment Repair Technician Name of Exercise Equipment Repair Technician: latricia Post Discharge Appointments Primary Care Physician Name Of Family Doctor: Des in [place] (1) Psychosis Psychosis type: unspecified psychosis type Qualified Code(s): F29 - Unspecified psychosis not due to a substance or known physiological condition
[2022-02-22] MEDS: risperiDONE 0.5 MG TABLET PO SCH ×2 (07:34→20:56)
[2022-02-22 08:17] LABS: Chol HDL Ratio 3.2 (0-5)
--- NOTE | 2022-02-22 08:50 | Psychiatric Progress Note ---
Date of Service February 22, 2022 Impression / Recommendations Impression The patient is a 21 year old with a history of trauma, anxiety and cannabis use who was admitted for worsening sleep, appetite, depression and bizarre behaviors concerning for psychosis/mood disorder. Diagnostically consistent with unspecified mood disorder and unspecified psychosis, differential includes depression with psychotic features vs mixed mood episode/BPAD vs substance- induced or withdrawal psychosis vs complex PTSD as well as marijuana use disorder though has stopped smoking and plans to continue to avoid marijuana use. The patient is deemed unstable and requires psychiatric hospitalization for diagnostic clarification, safety and stabilization, medication management and development of further coping skills. 02/22/22: Ongoing psychosis and disorganization but improving slightly with higher dose of risperidone which she is tolerating without any side effects. Sleep improving and eating a bit more. Reviewed fasting labs which were normal for glucose, triglycerides, and cholesterol levels. Discussed with her and importance of ongoing routine monitoring if she remains on risperidone for more than 1-2 months. (1) Unspecified mood [affective] disorder: (2) Cannabis use, unspecified with psychotic disorder, unspecified: (3) Psychosis: Plan 02/22/22: Continue with current medications and tx plan. 02/21/22: Increase risperidone to 0.5mg BID and continue with risperidone 0.25mg QID prn and ativan 0.5mg BID prn for severe agitation/distress. Fasting labs tomorrow. 02/20/22: The patient was admitted to the [facility] ([facility] health unit) on q15 min checks (behavioral with suicide precautions) for safety. The patient will participate in group, recreational, and milieu therapies and will be offered additional individual and family sessions as clinically appropriate. -Start risperidone 0.25mg BID, consider SSRI in the coming days depending on trajectory of symptoms and further diagnostic clarification -Fasting lipid panel and glucose labwork tomorrow morning Inventory Assets Strengths: resilient, full-time student, supportive friend/boyfriend, willing to get help, stopped smoking cannabis Needs: safety and stabilization, medication adjustment, additional coping skills, increased outpatient services Suicide Risk Level Suicide Risk Level: Moderate (q15 min suicide checks) Suicide Risk Level Comments: Moderate due to depression with bizarre behaviors and self-harm prior to admission but feels safe in the hospital, able to safety contract and agrees to let nursing/staff know should they develop SI, plan, intent or feel unable to remain safe. Risk Factors Assessment : Yes Do You Have Access To A Gun?: No Health Problems: No Mental Health Diagnoses: Yes Substance Use Disorders: Yes Previous Attempt: No Family History of Suicide: No Previous Psychiatric Hospitalization: No Hopelessness: Yes Protective Factors Assessment Employed: Yes ([employer] student) Stable Relationships: Yes Interval History Identifying Information AME TABOR is a 21-year-old woman and [employer] student who currently lives in an apartment with roommates, has no significant psychiatric history but exp erienced childhood trauma, and was admitted on 02/19/22 20:36 on a 201 voluntary commitment for bizarre behavior and depression with lack of sleep and poor nutritional intake over the last four days. Chief Complaint "I started smoking non-stop in December". Review of Systems Sleep Information Total Hours of Sleep: 6.5 Sleep Comments: vistaril 50 mg Meal Information Percent Meal Consumed - Breakfast: 25 Percent Meal Consumed - Lunch: 50 Percent Meal Consumed - Dinner: 50 Nutrition Comment: a few bites; tearful w poor appetite Subjective Subjective Patient was seen & assessed and interval progress reviewed with treatment team nursing and social work. Last evening was quite disorganized and required redirection in group after discussing topics of trauma in an appropriate manner. Told nursing this morning that her thoughts are more her own. Slept a little more. More fixated on germs this morning and still odd fixation on food today stating she can't eat carbs because her dad was diabetic. Signed LEANNE for her dad. Denies any side effects from the risperidone. Feels her thoughts are less "psychotic" today with increase in risperidone. Able to tolerate interview without becoming tearful. Reviewed long history of cannabis use, including synthetics, over last two years but only socially and with significant increase in use in December. Physical Exam Psychiatric Orientation: alert and oriented x 3 Apperance: appropriately dressed and appropriately groomed Eye Contact: good eye contact Motor Behavior: no abnormal motor movements Affect: + flat affect Mood: + depressed mood and + anxious mood Thought Process: goal directed thought process Thought Content: + ideas of reference, + worthlessness and + self deprecation Suicidal Thoughts: denies suicidal thoughts Homicidal Thoughts: denies homicidal thoughts Hallucinations: + auditory hallucinations (intermittent, one or two voices, can't make out what they are saying); no visual hallucinations Cognition: recent memory grossly intact, remote memory grossly intact and language grossly intact; + attention not intact Estimated Intelligence: consistent with education level Insight: + limited insight Judgement: + limited judgement Vital Signs (Past 24 Hours) Last Vital Signs Temp 36.7 C 02/22/22 06:40 Pulse 79 02/22/22 06:41 Resp 16 02/22/22 06:40 BP 107/71 02/22/22 06:41 Pulse Ox 100 02/19/22 22:35 O2 Del Method 02/19/22 22:35 Results & Data ([facility]) Laboratory Results Laboratory Results - last 24 hr 02/22/22 07:01 Fasting Glucose 85 Triglycerides 56 Cholesterol 145 LDL Cholesterol, Calc 88 VLDL Cholesterol, Calc 11 HDL Cholesterol 46 Cholesterol/HDL Ratio 3.2 Current Inpatient Medications Current Inpatient Medications: Current Inpatient Medications Acetaminophen (Acetaminophen 325 Mg Tab) 650 mg PO Q4H PRN PRN Reason: Headache or Minor Fever Stop: 03/21/22 20:35 Al Hydrox/Mg Hydrox/Simethicone (Aluminum/Magnesium Susp 30 Ml Udc) 30 ml PO Q4H PRN PRN Reason: GI Upset Stop: 03/21/22 20:35 Bismuth Subsalicylate (Bismuth Subsalicylate Liqd 236 Ml) 15 ml PO PRN PRN PRN Reason: Loose Stool Stop: 03/21/22 20:35 Hydroxyzine HCl (Hydroxyzine Hcl 25 Mg Tab) 50 mg PO HSZ PRN PRN Reason: Insomnia Stop: 03/21/22 20:35 Last Admin: 02/21/22 22:33 Dose: 50 mg Hydroxyzine HCl (Hydroxyzine Hcl 25 Mg Tab) 25 mg PO Q4H PRN PRN Reason: Anxiety Stop: 03/21/22 20:35 Last Admin: 02/21/22 07:56 Dose: 25 mg Lorazepam (Lorazepam 0.5 Mg Tab) 0.5 mg PO BID PRN PRN Reason: Agitation Stop: 03/23/22 10:01 Magnesium Hydroxide (Magnesium Hydroxide Susp 30 Ml Udc) 30 ml PO DAILY PRN PRN Reason: Constipation Stop: 03/21/22 20:35 Risperidone (Risperidone 0.5 Mg Tablet) 0.5 mg PO BID STEVEN Stop: 03/23/22 20:59 Last Admin: 02/22/22 07:34 Dose: 0.5 mg Risperidone (Risperidone 0.5 Mg Tablet) 0.25 mg PO QID PRN PRN Reason: Agitation/Anxiety/Psychosis Stop: 03/22/22 17:37 Last Admin: 02/21/22 17:08 Dose: 0.25 mg Sodium Chloride (Sodium Chloride 0.65% Na Soln 45 Ml ([place])) 1 - 2 sprays NA PRN PRN PRN Reason: Nasal Dryness/Congestion Stop: 03/21/22 20:35 Mental Health & Subst Abuse Tx Therapist Name of Therapist: latricia Fence Laborer Name of Fence Laborer: latricia Post Discharge Appointments Primary Care Physician Name Of Family Doctor: Doc in [place] (1) Psychosis Psychosis type: unspecified psychosis type Qualified Code(s): F29 - Unspecified psychosis not due to a substance or known physiological condition
[2022-02-22 21:26] LABS: Marijuana Quant, GCMS Urine 696 ng/mL (<5)
[2022-02-23] MEDS: risperiDONE 0.5 MG TABLET PO SCH (08:42)
[2022-02-23] MEDS: risperiDONE 0.5 MG TABLET PO PRN (10:15)
[2022-02-23] MEDS ORDERED: risperiDONE 0.5 MG TABLET PO PRN (16:33)
--- NOTE | 2022-02-23 16:33 | Psychiatric Progress Note ---
Date of Service February 23, 2022 Impression / Recommendations Impression The patient is a 21 year old with a history of trauma, anxiety and cannabis use who was admitted for worsening sleep, appetite, depression and bizarre behaviors concerning for psychosis/mood disorder. Diagnostically consistent with unspecified mood disorder and unspecified psychosis, differential includes depression with psychotic features vs mixed mood episode/BPAD vs substance- induced or withdrawal psychosis vs complex PTSD as well as marijuana use disorder though has stopped smoking and plans to continue to avoid marijuana use. The patient is deemed unstable and requires psychiatric hospitalization for diagnostic clarification, safety and stabilization, medication management and development of further coping skills. 02/23/22: Ongoing psychosis and disorganization worse again today, possibly because of poor sleep again last night. No clear evidence for [place] but remains on differential, substance-induced seems most likely. Discussed starting trazodone to help with sleep which she consents to, reviewed side effects including but not limited to sedation/increased appetite. She agrees to further increase in risperidone. Spoke with her father yesterday evening to update him on progress after she signed LEANNE. (1) Unspecified mood [affective] disorder: (2) Cannabis use, unspecified with psychotic disorder, unspecified: (3) Psychosis: Plan 02/23/22: Increase risperidone to 1mg BID and 0.5mg BID prn. Discontinue ativan as seemed to make disorganization worse. 02/22/22: Continue with current medications and tx plan. 02/21/22: Increase risperidone to 0.5mg BID and continue with risperidone 0.25mg QID prn and ativan 0.5mg BID prn for severe agitation/distress. Fasting labs tomorrow. 02/20/22: The patient was admitted to the [facility] ([facility] mental [facility] unit) on q15 min checks (behavioral with suicide precautions) for safety. The patient will participate in group, recreational, and milieu therapies and will be offered additional individual and family sessions as clinically appropriate. -Start risperidone 0.25mg BID, consider SSRI in the coming days depending on trajectory of symptoms and further diagnostic clarification -Fasting lipid panel and glucose labwork tomorrow morning Inventory Assets Strengths: resilient, full-time student, supportive friend/boyfriend, willing to get help, stopped smoking cannabis Needs: safety and stabilization, medication adjustment, additional coping skills, increased outpatient services Suicide Risk Level Suicide Risk Level: Moderate (q15 min suicide checks) Suicide Risk Level Comments: Moderate due to depression with bizarre behaviors and self-harm prior to admission but feels safe in the hospital, able to safety contract and agrees to let nursing/staff know should they develop SI, plan, intent or feel unable to remain safe. 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 Chief Complaint "When I stopped using the cartridges I thought my dad had done all this bad stuff to me but now I know it was just the psychosis". Review of Systems Sleep Information Total Hours of Sleep: 3 Sleep Comments: vistaril 50 mg Meal Information Percent Meal Consumed - Breakfast: 75 Percent Meal Consumed - Lunch: 80 Percent Meal Consumed - Dinner: 50 Nutrition Comment: a few bites; tearful w poor appetite Subjective Subjective Patient was seen & assessed and interval progress reviewed with treatment team nursing and social work. This morning significantly more disorganized and ruminative about concerns regarding germs and ideas of reference related to other patients. She got an additional prn of risperidone and a prn dose of ativan but became very tired after the ativan and it seemed to make her disorganization worse. She speaks about a variety of topics in a disorganized way including past trauma, now has moved from being from her parents to discussing it occurring in childhood by her best friend, and her difficulty connecting with her mother as she feels her mom loves her brother more and "told me I was a baby who always screamed and she hopes one day my baby will scream like that". Denies any side effects from the risperidone. She would like an additional medication to help with sleep. Physical Exam Psychiatric Orientation: alert and oriented x 3 Apperance: appropriately dressed and appropriately groomed Eye Contact: + poor eye contact Motor Behavior: no abnormal motor movements Speech: + abnormal rate/rhythm/volume of speech (more latent today ) Affect: + depressed affect Mood: + depressed mood and + anxious mood Thought Process: + tangential thought process and + looseness of associations Thought Content: + ideas of reference and + self deprecation Suicidal Thoughts: denies suicidal thoughts Homicidal Thoughts: denies homicidal thoughts Hallucinations: + auditory hallucinations (intermittent, one or two voices, can't make out what they are saying); no visual hallucinations Cognition: recent memory grossly intact, remote memory grossly intact and language grossly intact; + attention not intact Estimated Intelligence: consistent with education level Insight: + limited insight Judgement: + limited judgement Vital Signs (Past 24 Hours) Last Vital Signs Temp 36.9 C 02/22/22 21:02 Pulse 111 H 02/23/22 07:02 Resp 14 02/23/22 07:00 BP 112/83 02/23/22 07:02 Pulse Ox 100 02/19/22 22:35 O2 Del Method 02/19/22 22:35 Results & Data ([facility]) Laboratory Results Laboratory Results - last 24 hr 02/19/22 17:35 U Marijuana THC Carboxy 696 H Drug Screen Comment SEE NOTE Current Inpatient Medications Current Inpatient Medications: Current Inpatient Medications Acetaminophen (Acetaminophen 325 Mg Tab) 650 mg PO Q4H PRN PRN Reason: Headache or Minor Fever Stop: 03/21/22 20:35 Al Hydrox/Mg Hydrox/Simethicone (Aluminum/Magnesium Susp 30 Ml Udc) 30 ml PO Q4H PRN PRN Reason: GI Upset Stop: 03/21/22 20:35 Bismuth Subsalicylate (Bismuth Subsalicylate Liqd 236 Ml) 15 ml PO PRN PRN PRN Reason: Loose Stool Stop: 03/21/22 20:35 Hydroxyzine HCl (Hydroxyzine Hcl 25 Mg Tab) 50 mg PO HSZ PRN PRN Reason: Insomnia Stop: 03/21/22 20:35 Last Admin: 02/21/22 22:33 Dose: 50 mg Hydroxyzine HCl (Hydroxyzine Hcl 25 Mg Tab) 25 mg PO Q4H PRN PRN Reason: Anxiety Stop: 03/21/22 20:35 Last Admin: 02/21/22 07:56 Dose: 25 mg Lorazepam (Lorazepam 0.5 Mg Tab) 0.5 mg PO BID PRN PRN Reason: Agitation Stop: 03/23/22 10:01 Last Admin: 02/23/22 10:59 Dose: 0.5 mg Magnesium Hydroxide (Magnesium Hydroxide Susp 30 Ml Udc) 30 ml PO DAILY PRN PRN Reason: Constipation Stop: 03/21/22 20:35 Risperidone (Risperidone 0.5 Mg Tablet) 0.5 mg PO BID STEVEN Stop: 03/23/22 20:59 Last Admin: 02/23/22 08:42 Dose: 0.5 mg Risperidone (Risperidone 0.5 Mg Tablet) 0.25 mg PO QID PRN PRN Reason: Agitation/Anxiety/Psychosis Stop: 03/22/22 17:37 Last Admin: 02/23/22 10:15 Dose: 0.25 mg Sodium Chloride (Sodium Chloride 0.65% Na Soln 45 Ml ([place])) 1 - 2 sprays NA PRN PRN PRN Reason: Nasal Dryness/Congestion Stop: 03/21/22 20:35 Mental Health & Subst Abuse Tx Therapist Name of Therapist: [employer] Principal Name of [employer] Principal: latricia Post Discharge Appointments Primary Care Physician Name Of Family Doctor: Doc in [place] (1) Psychosis Psychosis type: unspecified psychosis type Qualified Code(s): F29 - Unspecified psychosis not due to a substance or known physiological condition
[2022-02-23] MEDS: risperiDONE 1 MG TABLET PO SCH (20:31)
[2022-02-23] MEDS: traZODone HCL 50 MG TAB PO SCH ×2 (21:04→22:26)
[2022-02-24] MEDS: risperiDONE 1 MG TABLET PO SCH (07:41)
[2022-02-24] MEDS: ALUMINUM/MAGNESIUM SUSP 30 ML UDC PO PRN ×2 (08:28→13:25)
--- NOTE | 2022-02-24 08:43 | Psychiatric Progress Note ---
Date of Service February 24, 2022 Impression / Recommendations Impression The patient is a 21 year old with a history of trauma, anxiety and cannabis use who was admitted for worsening sleep, appetite, depression and bizarre behaviors concerning for psychosis/mood disorder. Diagnostically consistent with unspecified mood disorder and unspecified psychosis, differential includes depression with psychotic features vs mixed mood episode/BPAD vs substance- induced or withdrawal psychosis vs complex PTSD as well as marijuana use disorder though has stopped smoking and plans to continue to avoid marijuana use. The patient is deemed unstable and requires psychiatric hospitalization for diagnostic clarification, safety and stabilization, medication management and development of further coping skills. 02/24/22: Ongoing psychosis and disorganization quite severe today, again with very poor sleep last night. No clear evidence for [place] except for some irritability today and poor sleep but remains on differential, substance-induced seems most likely. Discussed switching to olanzapine to help with sleep and take advantage of more sedating effects which she consents to. Reviewed side effects including but not limited to metabolic (need for glucose/lipid monitoring, increase in appetite, stroke, cardiac events) and movement (TD, dystonia, akathisia). Ordered EKG given tachycardia this morning and to ensure normal QTc as offered zorenuka after some episodes concerning for dry heaving this morning but she declined EKG but agreed to consider for tomorrow. Denied any current palpitations, SOB or chest pain on my assessment this afternoon. (1) Psychosis: (2) Unspecified mood [affective] disorder: (3) Cannabis use, unspecified with psychotic disorder, unspecified: Plan 02/24/22: EKG to assess QTc once she allows. Discontinue risperidone. Start olanzapine 10mg qhs. Olanzapine 2.5mg BID prn for agitation/anxiety. 02/23/22: Increase risperidone to 1mg BID and 0.5mg BID prn. Discontinue ativan as seemed to make disorganization worse. 02/22/22: Continue with current medications and tx plan. 02/21/22: Increase risperidone to 0.5mg BID and continue with risperidone 0.25mg QID prn and ativan 0.5mg BID prn for severe agitation/distress. Fasting labs tomorrow. 02/20/22: The patient was [facility] to [facility] ([facility] mental health unit) on q15 min checks (behavioral with suicide precautions) for safety. The pa tient will participate in group, recreational, and milieu therapies and will be offered additional individual and family sessions as clinically appropriate. -Start risperidone 0.25mg BID, consider SSRI in the coming days depending on trajectory of symptoms and further diagnostic clarification -Fasting lipid panel and glucose labwork tomorrow morning Inventory Assets Strengths: resilient, full-time student, supportive friend/boyfriend, willing to get help, stopped smoking cannabis Needs: safety and stabilization, medication adjustment, additional coping skills, increased outpatient services Suicide Risk Level Suicide Risk Level: Moderate (q15 min suicide checks) Suicide Risk Level Comments: Moderate due to depression with bizarre behaviors and self-harm prior to [place] but feels safe in the hospital, able to safety contract and agrees to let nursing/staff know should they develop SI, plan, intent or feel unable to remain safe. 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 Chief Complaint "I know I've been saying weird things". Review of Systems Sleep Information Total Hours of Sleep: 3.5 Sleep Comments: vistaril 50 mg Meal Information Percent Meal Consumed - Breakfast: 75 Percent Meal Consumed - Lunch: 80 Percent Meal Consumed - Dinner: 75 Nutrition Comment: a few bites; tearful w poor appetite Subjective Subjective Patient was seen & assessed and interval progress reviewed with treatment team nursing and social work. Slept horribly last night, became very paranoid about taking risperidone and trazodone together. Did some odd dry heaving in the dayroom, accepted medication to help with possible heart burn. Was eating meals off the floor and required redirection from nursing to eat at the table. Became fixated on belief that eating pizza a few days ago caused her to have heartburn though did accept Maalox with encouragement. She remains paranoia stating that she believes staff and providers are purposefully changing our names "every 2 or 3 days" and that we may be impersonating others. States she had double vision after taking risperidone last night and she wonders if this is contributing to her heartburn. She finds morning dose of risperidone "very helpful" but attributes qhs dose to causing lots of issues. Reviewed switching her medications to help with sleep and reduce side effects. She denies any other GI side effects nor constipation. Physical Exam Psychiatric Orientation: alert and oriented x 3 Apperance: appropriately dressed Eye Contact: + poor eye contact Motor Behavior: no abnormal motor movements Speech: + abnormal rate/rhythm/volume of speech (more latent today ) Affect: + flat affect and + irritable affect Mood: + anxious mood and + irritable mood Thought Process: + circumstantial thought process and + looseness of associations Thought Content: + paranoid, + delusions and + ideas of reference Suicidal Thoughts: denies suicidal thoughts Homicidal Thoughts: denies homicidal thoughts Hallucinations: + auditory hallucinations (intermittent, one or two voices, can't make out what they are saying); no visual hallucinations Cognition: recent memory grossly intact, remote memory grossly intact and language grossly intact; + attention not intact Estimated Intelligence: consistent with education level Insight: + limited insight Judgement: + limited judgement Vital Signs (Past 24 Hours) Last Vital Signs Temp 37.1 C 02/24/22 06:00 Pulse 109 H 02/24/22 06:00 Resp 16 02/24/22 06:00 BP 122/86 02/24/22 06:00 Pulse Ox 100 02/19/22 22:35 O2 Del Method 02/19/22 22:35 Results & Data ([facility]) Current Inpatient Medications Current Inpatient Medications: Current Inpatient Medications Acetaminophen (Acetaminophen 325 Mg Tab) 650 mg PO Q4H PRN PRN Reason: Headache or Minor Fever Stop: 03/21/22 20:35 Al Hydrox/Mg Hydrox/Simethicone (Aluminum/Magnesium Susp 30 Ml Udc) 30 ml PO Q4H PRN PRN Reason: GI Upset Stop: 03/21/22 20:35 Last Admin: 02/24/22 08:28 Dose: 30 ml Bismuth Subsalicylate (Bismuth Subsalicylate Liqd 236 Ml) 15 ml PO PRN PRN PRN Reason: Loose Stool Stop: 03/21/22 20:35 Hydroxyzine HCl (Hydroxyzine Hcl 25 Mg Tab) 50 mg PO HSZ PRN PRN Reason: Insomnia Stop: 03/21/22 20:35 Last Admin: 02/21/22 22:33 Dose: 50 mg Hydroxyzine HCl (Hydroxyzine Hcl 25 Mg Tab) 25 mg PO Q4H PRN PRN Reason: Anxiety Stop: 03/21/22 20:35 Last Admin: 02/21/22 07:56 Dose: 25 mg Magnesium Hydroxide (Magnesium Hydroxide Susp 30 Ml Udc) 30 ml PO DAILY PRN PRN Reason: Constipation Stop: 03/21/22 20:35 Risperidone (Risperidone 0.5 Mg Tablet) 0.5 mg PO QID PRN PRN Reason: Agitation/Anxiety/Psychosis Stop: 03/22/22 17:37 Risperidone (Risperidone 1 Mg Tablet) 1 mg PO BID STEVEN Stop: 03/25/22 20:59 Last Admin: 02/24/22 07:41 Dose: 1 mg Sodium Chloride (Sodium Chloride 0.65% Na Soln 45 Ml ([place])) 1 - 2 sprays NA PRN PRN PRN Reason: Nasal Dryness/Congestion Stop: 03/21/22 20:35 Trazodone HCl (Trazodone Hcl 50 Mg Tab) 50 mg PO HS STEVEN Stop: 03/25/22 21:59 Last Admin: 02/23/22 22:26 Dose: 50 mg Mental Health & Subst Abuse Tx Therapist Name of Therapist: latricia [employer]indergarten Teacher Name of Transitional Kindergarten Teacher: latricia Post Discharge Appointments Primary Care Physician Name Of Family Doctor: Doc in [place] (1) Psychosis Psychosis type: unspecified psychosis type Qualified Code(s): F29 - Unspecified psychosis not due to a substance or known physiological condition
[2022-02-24] MEDS ORDERED: OLANZAPINE 2.5 MG TAB PO PRN (08:44)
[2022-02-24] MEDS ORDERED: ONDANSETRON 2 MG OD TAB PO PRN (11:15)
[2022-02-24] MEDS: OLANZapine 10 MG TAB PO SCH (19:45)
--- NOTE | 2022-02-25 08:43 | Psychiatric Progress Note ---
Date of Service February 25, 2022 Impression / Recommendations Impression The patient is a 21 year old with a history of trauma, anxiety and cannabis use who was admitted for worsening sleep, appetite, depression and bizarre behaviors concerning for psychosis/mood disorder. Diagnostically consistent with unspecified mood disorder and unspecified psychosis, differential includes depression with psychotic features vs mixed mood episode/BPAD vs substance- induced or withdrawal psychosis vs complex PTSD as well as marijuana use disorder though has stopped smoking and plans to continue to avoid marijuana use. The patient is deemed unstable and requires psychiatric hospitalization for diagnostic clarification, safety and stabilization, medication management and development of further coping skills. 02/25/22: Slept better last night, still with some psychosis and disorganization with ongoing paranoia but more reality-based topics today. Talked with her father on the phone for 10 minutes to provide clinical update. She is tolerating the olanzapine without side effects and sleep improved so well continue with this. No GERD symptoms today and HR is normal. EKG to be done when she can tolerate this to ensure normal QTc. (1) Psychosis: (2) Unspecified mood [affective] disorder: (3) Cannabis use, unspecified with psychotic disorder, unspecified: (4) Brief psychotic disorder: Plan 02/25/22: Continue with current medications and tx plan. 02/24/22: EKG to assess QTc once she allows. Discontinue risperidone. Start olanzapine 10mg qhs. Olanzapine 2.5mg BID prn for agitation/anxiety. 02/23/22: Increase risperidone to 1mg BID and 0.5mg BID prn. Discontinue ativan as seemed to make disorganization worse. 02/22/22: Continue with current medications and tx plan. 02/21/22: Increase risperidone to 0.5mg BID and continue with risperidone 0.25mg QID prn and ativan 0.5mg BID prn for severe agitation/distress. Fasting labs tomorrow. 02/20/22: The patient was admitted to the [facility] ([facility] inpatient mental health unit) on q15 min checks (behavioral with suicide precautions) for safety. The patient will participate in group, recreational, and milieu therapies and will be offered additional individual and family sessions as clinically appropriate. -Start risperidone 0.25mg BID, consider SSRI in the coming days depending on trajectory of symptoms and further diagnostic clarification -Fasting lipid panel and glucose labwork tomorrow morning Inventory Assets Strengths: resilient, full-time student, supportive friend/boyfriend, willing to get help, stopped smoking cannabis Needs: safety and stabilization, medication adjustment, additional coping skills, increased outpatient services Suicide Risk Level Suicide Risk Level: Moderate (q15 min suicide checks) Suicide Risk Level Comments: Moderate due to depression with bizarre behaviors and self-harm prior to admission but feels safe in the hospital, able to safety contract and agrees to let nursing/staff know should they develop SI, plan, intent or feel unable to remain safe. 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 Chief Complaint "I only woke up one time". Review of Systems Sleep Information Total Hours of Sleep: 8.5 Sleep Comments: pt on q-15 minute checks Meal Information Percent Meal Consumed - Breakfast: 15 Percent Meal Consumed - Lunch: 10 Percent Meal Consumed - Dinner: 75 Nutrition Comment: broth and fluids only Subjective Subjective Patient was seen & assessed and interval progress reviewed with treatment team nursing and social work. Slept well and showered this morning. Still with periods of ideas of references and odd connections such as telling nursing that her problems were all due to her oatmeal being too watery this morning with ongoing odd fixation at times about meals but back to eating meat again today (her standard diet) and eating a bit more (1/2 sandwich at lunch today). She agrees her thoughts are more clear today, still tangential at times but starting to talk about more reality-based concerns such as missing her classes. She is denying AH today, now attributes voices to "only when I was heavily smoking cartridges from off the street". Denies any side effects from olanzapine, she liked that it helped with sleep and feels it helps her thoughts be more organized. Continues to have some paranoia about nursing and staff not allowing her to get medications/shower/use the washer and dryer which is not accurate (at one point she was told she could use washer after another patient's clothes were done but was never told she could not use it). Physical Exam Psychiatric Orientation: alert and oriented x 3 Apperance: appropriately dressed and appropriately groomed Eye Contact: good eye contact Motor Behavior: no abnormal motor movements Speech: normal rate/rhythm/volume of speech (brief) Affect: + flat affect Mood: + depressed mood and + anxious mood Thought Process: + circumstantial thought process, + tangential thought process and + looseness of associations Thought Content: + paranoid, + delusions and + ideas of reference Suicidal Thoughts: denies suicidal thoughts Homicidal Thoughts: denies homicidal thoughts Hallucinations: no auditory hallucinations and no visual hallucinations Cognition: recent memory grossly intact, remote memory grossly intact and language grossly intact; + attention not intact Estimated Intelligence: consistent with education level Insight: + limited insight Judgement: + limited judgement Vital Signs (Past 24 Hours) Last Vital Signs Temp 37.3 C 02/25/22 06:48 Pulse 76 02/25/22 06:49 Resp 16 02/25/22 06:48 BP 119/74 02/25/22 06:49 Pulse Ox 100 02/19/22 22:35 O2 Del Method 02/19/22 22:35 Results & Data ([facility]) Current Inpatient Medications Current Inpatient Medications: Current Inpatient Medications Acetaminophen (Acetaminophen 325 Mg Tab) 650 mg PO Q4H PRN PRN Reason: Headache or Minor Fever Stop: 03/21/22 20:35 Al Hydrox/Mg Hydrox/Simethicone (Aluminum/Magnesium Susp 30 Ml Udc) 30 ml PO Q4H PRN PRN Reason: GI Upset Stop: 03/21/22 20:35 Last Admin: 02/24/22 13:25 Dose: 30 ml Bismuth Subsalicylate (Bismuth Subsalicylate Liqd 236 Ml) 15 ml PO PRN PRN PRN Reason: Loose Stool Stop: 03/21/22 20:35 Hydroxyzine HCl (Hydroxyzine Hcl 25 Mg Tab) 50 mg PO HSZ PRN PRN Reason: Insomnia Stop: 03/21/22 20:35 Last Admin: 02/21/22 22:33 Dose: 50 mg Hydroxyzine HCl (Hydroxyzine Hcl 25 Mg Tab) 25 mg PO Q4H PRN PRN Reason: Anxiety Stop: 03/21/22 20:35 Last Admin: 02/21/22 07:56 Dose: 25 mg Magnesium Hydroxide (Magnesium Hydroxide Susp 30 Ml Udc) 30 ml PO DAILY PRN PRN Reason: Constipation Stop: 03/21/22 20:35 Olanzapine (Olanzapine 2.5 Mg Tab) 2.5 mg PO BID PRN PRN Reason: Anxiety/Agitation Stop: 03/26/22 08:59 Olanzapine (Olanzapine 10 Mg Tab) 10 mg PO HS STEVEN Stop: 03/26/22 21:59 Last Admin: 02/24/22 19:45 Dose: 10 mg Ondansetron HCl (Ondansetron 2 Mg Od Tab) 2 mg PO BID PRN PRN Reason: Nausea Stop: 03/26/22 11:14 Last Admin: 02/24/22 11:28 Dose: 2 mg Sodium Chloride (Sodium Chloride 0.65% Na Soln 45 Ml ([place])) 1 - 2 sprays NA PRN PRN PRN Reason: Nasal Dryness/Congestion Stop: 03/21/22 20:35 Mental Health & Subst Abuse Tx Therapist Name of Therapist: latricia Tire Cord Weaver Name of Tire Cord Weaver: latricia Post Discharge Appointments Primary Care Physician Name Of Family Doctor: Des in Lisa (1) Psychosis Psychosis type: unspecified psychosis type Qualified Code(s): F29 - Unspecified psychosis not due to a substance or known physiological condition
[2022-02-25] MEDS: OLANZapine 10 MG TAB PO SCH (21:20)
--- NOTE | 2022-02-26 13:42 | Psychiatric Progress Note ---
Date of Service February 26, 2022 Impression / Recommendations Impression The patient is a 21 year old with a history of trauma, anxiety and cannabis use who was admitted for worsening sleep, appetite, depression and bizarre behaviors concerning for psychosis/mood disorder. Diagnostically consistent with unspecified mood disorder and unspecified psychosis, differential includes depression with psychotic features vs mixed mood episode/BPAD vs substance- induced or withdrawal psychosis vs complex PTSD as well as marijuana use disorder though has stopped smoking and plans to continue to avoid marijuana use. The patient is deemed unstable and requires psychiatric hospitalization for diagnostic clarification, safety and stabilization, medication management and development of further coping skills. 02/26/22: Some improvement in psychosis but still with concern for some paranoia and ongoing very flat/withdrawn affect. Tolerating olanzapine without any side effects and pulse remains normal. No further symptoms of GERD today. Consider family meeting for tomorrow. (1) Psychosis: (2) Unspecified mood [affective] disorder: (3) Cannabis use, unspecified with psychotic disorder, unspecified: (4) Brief psychotic disorder: Plan 02/26/22: Continue with current medications and tx plan. 02/25/22: Continue with current medications and tx plan. 02/24/22: EKG to assess QTc once she allows. Discontinue risperidone. Start olanzapine 10mg qhs. Olanzapine 2.5mg BID prn for agitation/anxiety. 02/23/22: Increase risperidone to 1mg BID and 0.5mg BID prn. Discontinue ativan as seemed to make disorganization worse. 02/22/22: Continue with current medications and tx plan. 02/21/22: Increase risperidone to 0.5mg BID and continue with risperidone 0.25mg QID prn and ativan 0.5mg BID prn for severe agitation/distress. Fasting labs t omorrow. 02/20/22: The patient was admitted to the [facility] ([facility] inpatient mental health unit) on q15 min checks (behavioral with suicide precautions) for safety. The patient will participate in group, recreational, and milieu therapies and will be offered additional individual and family sessions as clinically appropriate. -Start risperidone 0.25mg BID, consider SSRI in the coming days depending on trajectory of symptoms and further diagnostic clarification -Fasting lipid panel and glucose labwork tomorrow morning Inventory Assets Strengths: resilient, full-time student, supportive friend/boyfriend, willing to get help, stopped smoking cannabis Needs: safety and stabilization, medication adjustment, additional coping skills, increased outpatient services Suicide Risk Level Suicide Risk Level: Moderate (q15 min suicide checks) Suicide Risk Level Comments: Moderate due to depression with bizarre behaviors and self-harm prior to admission but feels safe in the hospital, able to safety contract and agrees to let nursing/staff know should they develop SI, plan, intent or feel unable to remain safe. 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 Chief Complaint "It's so hard not to be able to go for runs, I've been here for 8 days now". Review of Systems Sleep Information Total Hours of Sleep: 6.5 Sleep Comments: pt on q-15 minute checks Meal Information Percent Meal Consumed - Breakfast: 90 Percent Meal Consumed - Lunch: 30 Percent Meal Consumed - Dinner: 75 Nutrition Comment: broth and fluids only Subjective Subjective Patient was seen & assessed and interval progress reviewed with treatment team nursing and social work. Slept well again last night 7.5 hours. Denies any side effects from olanzapine. Wanting to have a family meeting soon as she feels "stuck" and knows other patients are having family meetings. Reviewed ways to get exercise on the unit using the bike which she agreed to try. She feels her thoughts are getting more organized. Eating a bit offered. She expressed some concern nursing was keeping her from having Jordi bars she thought had been dropped off by her boyfriend so we reviewed this, checked her belongings and no jordi bars but she decided that maybe they had been accidentally thrown out. More organized in group today. Physical Exam Psychiatric Orientation: alert and oriented x 3 Apperance: appropriately dressed and appropriately groomed Eye Contact: good eye contact Motor Behavior: no abnormal motor movements Speech: normal rate/rhythm/volume of speech Affect: + flat affect Mood: + depressed mood and + anxious mood Thought Process: goal directed thought process Thought Content: + paranoid Suicidal Thoughts: denies suicidal thoughts Homicidal Thoughts: denies homicidal thoughts Hallucinations: no auditory hallucinations and no visual hallucinations Cognition: recent memory grossly intact, remote memory grossly intact, attention grossly intact and language grossly intact Estimated Intelligence: consistent with education level Insight: + fair insight Judgement: + fair judgement Vital Signs (Past 24 Hours) Last Vital Signs Temp 36.9 C 02/26/22 06:39 Pulse 75 02/26/22 06:39 Resp 16 02/26/22 06:39 BP 120/76 02/26/22 06:39 Pulse Ox 100 02/19/22 22:35 O2 Del Method 02/19/22 22:35 Results & Data ([facility] [[email or web address] Current Inpatient Medications Current Inpatient Medications: Current Inpatient Medications Acetaminophen (Acetaminophen 325 Mg Tab) 650 mg PO Q4H PRN PRN Reason: Headache or Minor Fever Stop: 03/21/22 20:35 Al Hydrox/Mg Hydrox/Simethicone (Aluminum/Magnesium Susp 30 Ml Udc) 30 ml PO Q4H PRN PRN Reason: GI Upset Stop: 03/21/22 20:35 Last Admin: 02/24/22 13:25 Dose: 30 ml Bismuth Subsalicylate (Bismuth Subsalicylate Liqd 236 Ml) 15 ml PO PRN PRN PRN Reason: Loose Stool Stop: 03/21/22 20:35 Hydroxyzine HCl (Hydroxyzine Hcl 25 Mg Tab) 50 mg PO HSZ PRN PRN Reason: Insomnia Stop: 03/21/22 20:35 Last Admin: 02/21/22 22:33 Dose: 50 mg Hydroxyzine HCl (Hydroxyzine Hcl 25 Mg Tab) 25 mg PO Q4H PRN PRN Reason: Anxiety Stop: 03/21/22 20:35 Last Admin: 02/21/22 07:56 Dose: 25 mg Magnesium Hydroxide (Magnesium Hydroxide Susp 30 Ml Udc) 30 ml PO DAILY PRN PRN Reason: Constipation Stop: 03/21/22 20:35 Olanzapine (Olanzapine 2.5 Mg Tab) 2.5 mg PO BID PRN PRN Reason: Anxiety/Agitation Stop: 03/26/22 08:59 Olanzapine (Olanzapine 10 Mg Tab) 10 mg PO HS STEVEN Stop: 03/26/22 21:59 Last Admin: 02/25/22 21:20 Dose: 10 mg Ondansetron HCl (Ondansetron 2 Mg Od Tab) 2 mg PO BID PRN PRN Reason: Nausea Stop: 03/26/22 11:14 Last Admin: 02/24/22 11:28 Dose: 2 mg Sodium Chloride (Sodium Chloride 0.65% Na Soln 45 Ml ([place])) 1 - 2 sprays NA PRN PRN PRN Reason: Nasal Dryness/Congestion Stop: 03/21/22 20:35 Mental Health & Subst Abuse Tx Therapist Name of Therapist: latricia C Developer Name of C Developer: latricia Post Discharge Appointments Primary Care Physician Name Of Family Doctor: Des in Lisa (1) Psychosis Psychosis type: unspecified psychosis type Qualified Code(s): F29 - Unspecified psychosis not due to a substance or known physiological condition
[2022-02-26] MEDS: OLANZapine 10 MG TAB PO SCH (21:37)
--- NOTE | 2022-02-27 13:26 | Psychiatric Progress Note ---
Date of Service February 27, 2022 Impression / Recommendations Impression The patient is a 21 year old with a history of trauma, anxiety and cannabis use who was admitted for worsening sleep, appetite, depression and bizarre behaviors concerning for psychosis/mood disorder. Diagnostically consistent with brief psychotic episode, substance-induced remains most likely with primary psychotic disorder on the differential though less likely given steady improvement and no family history. The patient is deemed unstable and requires psychiatric hospitalization for diagnostic clarification, safety and stabilization, medication management and development of further coping skills. 02/27/22: Psychosis is improving, possibly some remaining intermittent paranoia versus anxiety and some odd food preferences at times but eating consistently. Affect had been flat but more smiles today and appropriate tearfulness when discussing her desire to discharge. Tolerating olanzapine without any side effects. Updated her father over the phone this morning with social work for 15 minutes. Ongoing motivational interviewing regarding cannabis use. (1) Psychosis: (2) Cannabis use, unspecified with psychotic disorder, unspecified: (3) Brief psychotic disorder: Plan 02/27/22: Continue with current medications and tx plan. Family meeting held. Needs outpatient services. 02/26/22: Continue with current medications and tx plan. 02/25/22: Continue with current medications and tx plan. 02/24/22: Discontinue risperidone. Start olanzapine 10mg qhs. Olanzapine 2.5mg BID prn for agitation/anxiety. 02/23/22: Increase risperidone to 1mg BID and 0.5mg BID prn. Discontinue ativan as seemed to make disorganization worse. 02/22/22: Continue with current medications and tx plan. 02/21/22: Increase risperidone to 0.5mg BID and continue with risperidone 0.25mg QID prn and ativan 0.5mg BID prn for severe agitation/distress. Fasting labs tomorrow. 02/20/22: The patient was admitted to the [facility]) on q15 min checks (behavioral with suicide precautions) for safety. The patient will participate in group, recreational, and milieu therapies and will be offered additional individual and family sessions as clinically appropriate. -Start risperidone 0.25mg BID, consider SSRI in the coming days depending on trajectory of symptoms and further diagnostic clarification -Fasting lipid panel and glucose labwork tomorrow morning Inventory Assets Strengths: resilient, full-time student, supportive friend/boyfriend, willing to get help, stopped smoking cannabis Needs: safety and stabilization, medication adjustment, additional coping skills, increased outpatient services Suicide Risk Level Suicide Risk Level: Moderate (q15 min suicide checks) Suicide Risk Level Comments: Moderate due to depression with bizarre behaviors and self-harm prior to admission but feels safe in the hospital, behavior is more organized, able to safety contract and agrees to let nursing/staff know should they develop SI, plan, intent or feel unable to remain safe. 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 Chief Complaint "I'm just really bored here". Review of Systems Sleep Information Total Hours of Sleep: 6.5 Sleep Comments: pt on q-15 minute checks Meal Information Percent Meal Consumed - Breakfast: 75 Percent Meal Consumed - Lunch: 30 Percent Meal Consumed - Dinner: 75 Nutrition Comment: broth and fluids only Subjective Subjective Patient was seen & assessed and interval progress reviewed with treatment team nursing and social work. Slept well again last night. Threw out the salad her boyfriend brought her but ate her dinner from the hospital dining services. Still some periods of possible paranoia about not being allowed to have things/suspiciousness about staff but could be related to anxiety. Had family meeting via zoom with her dad. She is focused on getting back to classes noted she is taking fewer credits, 15, and is eager to get started back at school. She denies any side effects from olanzapine and no further cardiac symptoms so she requested we cancel EKG which is reasonable. She plans to avoid cannabis use and her boyfriend stopped smoking as well so she feels this will help her since other friends smoke. She notes "I'm angry at marijuana" given the psychosis she developed and knows the importance of avoiding this as she is at high risk for re-emergence of psychosis if she used it again in the future. Physical Exam Psychiatric Orientation: alert and oriented x 3 Apperance: appropriately dressed and appropriately groomed Eye Contact: + fair eye contact Motor Behavior: no abnormal motor movements Speech: normal rate/rhythm/volume of speech Affect: + constricted affect (but some smiles today, tearful earlier during family meeting) Mood: + anxious mood; no depressed mood (bored ) Thought Process: goal directed thought process Thought Content: + paranoid and reality based without delusions Suicidal Thoughts: denies suicidal thoughts Homicidal Thoughts: denies homicidal thoughts Hallucinations: no auditory hallucinations and no visual hallucinations Cognition: recent memory grossly intact, remote memory grossly intact, attention grossly intact and language grossly intact Insight: + fair insight Judgement: + fair judgement Vital Signs (Past 24 Hours) Last Vital Signs Temp 36.9 C 02/27/22 06:39 Pulse 57 L 02/27/22 06:39 Resp 16 02/27/22 06:39 BP 102/64 02/27/22 06:39 Pulse Ox 100 02/19/22 22:35 O2 Del Method 02/19/22 22:35 Results & Data (U) Current Inpatient Medications Current Inpatient Medications: Current Inpatient Medications Acetaminophen (Acetaminophen 325 Mg Tab) 650 mg PO Q4H PRN PRN Reason: Headache or Minor Fever Stop: 03/21/22 20:35 Al Hydrox/Mg Hydrox/Simethicone (Aluminum/Magnesium Susp 30 Ml Udc) 30 ml PO Q4H PRN PRN Reason: GI Upset Stop: 03/21/22 20:35 Last Admin: 02/24/22 13:25 Dose: 30 ml Bismuth Subsalicylate (Bismuth Subsalicylate Liqd 236 Ml) 15 ml PO PRN PRN PRN Reason: Loose Stool Stop: 03/21/22 20:35 Hydroxyzine HCl (Hydroxyzine Hcl 25 Mg Tab) 50 mg PO HSZ PRN PRN Reason: Insomnia Stop: 03/21/22 20:35 Last Admin: 02/21/22 22:33 Dose: 50 mg Hydroxyzine HCl (Hydroxyzine Hcl 25 Mg Tab) 25 mg PO Q4H PRN PRN Reason: Anxiety Stop: 03/21/22 20:35 Last Admin: 02/21/22 07:56 Dose: 25 mg Magnesium Hydroxide (Magnesium Hydroxide Susp 30 Ml Udc) 30 ml PO DAILY PRN PRN Reason: Constipation Stop: 03/21/22 20:35 Olanzapine (Olanzapine 2.5 Mg Tab) 2.5 mg PO BID PRN PRN Reason: Anxiety/Agitation Stop: 03/26/22 08:59 Olanzapine (Olanzapine 10 Mg Tab) 10 mg PO HS STEVEN Stop: 03/26/22 21:59 Last Admin: 02/26/22 21:37 Dose: 10 mg Ondansetron HCl (Ondansetron 2 Mg Od Tab) 2 mg PO BID PRN PRN Reason: Nausea Stop: 03/26/22 11:14 Last Admin: 02/24/22 11:28 Dose: 2 mg Sodium Chloride (Sodium Chloride 0.65% Na Soln 45 Ml ([place])) 1 - 2 sprays NA PRN PRN PRN Reason: Nasal Dryness/Congestion Stop: 03/21/22 20:35 Mental Health & Subst Abuse Tx Therapist Name of Therapist: latricia Director Organizational Name of Director Organizational: latricia Post Discharge Appointments Primary Care Physician Name Of Family Doctor: Des in [place] (1) Psychosis Psychosis type: unspecified psychosis type Qualified Code(s): F29 - Unspecified psychosis not due to a substance or known physiological condition
[2022-02-27] MEDS: OLANZapine 10 MG TAB PO SCH (21:00)
--- NOTE | 2022-02-28 13:01 | Discharge Summary ---
Date of Service February 28, 2022 History of Present Illness As per Dr. Olsen on admission: Shiloh, who prefers to be called Elizabeth, presents for psychiatric admission for bizarre behaviors in recent days including talking to herself and disorganized thought process, lack of sleep, not eating or drinking and increased depression and anxiety in the context of multiple psychosocial stressors including transition back to campus for fall, academic pressure, finances, withdrawing from marijuana and history of trauma/strained relationship with her parents. She tends to cope by using marijuana but quit abruptly last week. Took a road trip to [place] last week (per her report) versus yesterday (per collateral reports to ED) to see her boyfriend and on returning her roommate noticed she was acting very bizarre and brought her to the ED. Elizabeth hasn't been sleeping or eating in the last few days and reports feeling overwhelmed about concerns of not being able to set personal boundaries with other people or express her true feelings. States she was unintentionally vomiting up what food she was trying to eat over the last few days which she feels was due to "coming off of weed". She has been self-harming via skin picking and hitting herself. She is refusing to sign releases for anyone. She states she doesn't feel safe at her apartment because "how lonely it is" and "that I would get back into my own head". Notes significant concerns about being not caring about her, stating her dad has been telling her that her roommate "doesn't love you and hates you" and states that this causes her to push her roommate away and becomes tearful describing this noting "I have meanness in me that I can't get through and I hate". She also endorses significant self-guilt "I see pain really heavily, I'm always searching for what's missing". She endorses depressive symptoms including tearfulness, anhedonia, decreased motivation, self-guilt, helplessness, hopelessness, decreased energy, decreased appetite, and decreased sleep with about 4 days of no sleep and prior to this only about 3-4 hours per night. She denies any SI though made an odd comment regarding this in the ED stating "I cannot be suicidal because if my dad committed suicide I would ." She also endorses symptoms of anxiety including generalized worries, shakiness, easily overwhelmed and occasional panic attacks. She is not currently prescribed any psychiatric medications. Psychiatric ROS notable for: no history of [place], hx psychosis of "seeing stuff" while using cannabis and hx hearing voices when using cannabis, hx of trauma and endorses symptoms of PTSD, OCD; hx of eating disorder via binge eating and restriction in the past, hx self-harming since 5th grade. Physical Exam Psychiatric See admission H&P and DOD assessment. Vital Signs (Past 24 Hours) Last Vital Signs Temp 36.6 C 02/28/22 09:43 Pulse 79 02/28/22 09:43 Resp 16 02/28/22 09:43 BP 107/71 02/28/22 09:43 Pulse Ox 100 02/28/22 09:43 O2 Del Method 02/19/22 22:35 Principal Diagnosis cannabis induced psychotic disorder Psychiatric Data See daily stay summary. In short, safety was maintained and the patient was more engaged in care late in her stay as thought processes improved. She was initially tried on Risperdal then shifted to a trial of Zyprexa which was effective. She tolerated this well and on day of discharged was reeducated re: need to abstain from MJ (she agreed) and also need for longerterm monitoring given than unclear how long should stay on Zyprexa for substance incuded psychosis to fully resolve and to avoid recurrence (minimum recommended is 3 months but ultimately at discretion of outpatient treating provider). She expressed understanding of risks of metabolic abnl and need for monitoring for TD. She had no abnormal motor movements at discharge. A family session was held with her father and he is very supportive of her and will be staying in the area for up to 2 months to help with "any tasks I need" and for additional monitoring and supporty. A safety plan was completed prior to discharge. Day of Discharge Assessment Today the patient voices readiness for discharge. They note improvement in mood and deny thoughts to harm self or others. Thoughts remain organized and they are improved from admission. There is no evidence of psychosis. They agree to take mediations as prescribed and keep follow-up appointments. They are stable for discharge to outpatient level of care. Transition of Care Transition Of Care Record: was reviewed with the patient Advance Directives Advance Directives Information Provided: Yes Advance Directives: No Mental Health Advance Directive: No Advance Directives on File: No Living Will: No Power of Drapery Cutter Machine: No Advance Directives Reason:: Declines as Mental Health Visit. Suicide Risk Level Suicide Risk Level Comments: Suicide risk at discharge is deemed low as the patient is no longer requiring 24-hr monitoring, has a safety plan, and is free of suicidal ideation at discharge. 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2 Baso % (Auto) 0.2 Neut # (Auto) 8.70 H Lymph # (Auto) 1.24 Louisa # (Auto) 0.83 H Eos # (Auto) 0.02 Baso # (Auto) 0.02 Immature Gran # (Auto) 0.02 Sodium 138 Potassium 3.5 Chloride 104 Carbon Dioxide 24 Anion Gap 10 BUN 10 Creatinine 0.71 Est Cr Clr Drug Dosing 110.4 Est GFR ( Amer) 141.1 Est GFR (Non-Af Amer) 121.8 BUN/Creatinine Ratio 14.1 Glucose 99 Fasting Glucose Calcium 9.8 Total Bilirubin 1.4 H AST 17 ALT 20 Alkaline Phosphatase 50 Total Protein 8.5 H Albumin 5.3 H Globulin 3.2 Albumin/Globulin Ratio 1.7 Triglycerides Cholesterol LDL Cholesterol, Calc VLDL Cholesterol, Calc HDL Cholesterol Cholesterol/HDL Ratio TSH HCG, Qual Negative Urine Color Urine Appearance Urine pH Ur Specific [place] Urine Protein Urine Glucose (UA) Urine Ketones Urine Blood Urine Nitrite Urine Bilirubin Urine Urobilinogen Ur Leukocyte Esterase Urine WBC (Auto) Urine RBC (Auto) U Hyaline Cast (Auto) U Epithel Cells (Auto) Urine Bacteria (Auto) Salicylates Urine Opiates Screen Ur Methadone, Qual Acetaminophen Urine Barbiturates Ur Phencyclidine (PCP) U Amphetamin/Meth Scrn MDMA (Ecstasy) Screen U Benzodiazepines Scrn Ur Cocaine Metabolite U Marijuana (THC) Screen U Marijuana THC Carboxy Drug Screen Comment Ethyl Alcohol mg/dL SARS-CoV-2, RNA, NAAT 02/19/22 02/19/22 02/19/22 17:35 17:35 17:35 WBC RBC Hgb Hct MCV MCH MCHC RDW Std Deviation RDW Coeff of Jimmy Plt Count MPV Immature Gran % (Auto) Neut % (Auto) Lymph % (Auto) Louisa % (Auto) Eos % (Auto) Baso % (Auto) Neut # (Auto) Lymph # (Auto) Louisa # (Auto) Eos # (Auto) Baso # (Auto) Immature Gran # (Auto) Sodium Potassium Chloride Carbon Dioxide Anion Gap BUN Creatinine Est Cr Clr Drug Dosing Est GFR ( Amer) Est GFR (Non-Af Amer) BUN/Creatinine Ratio Glucose Fasting Glucose Calcium Total Bilirubin AST ALT Alkaline Phosphatase Total Protein Albumin Globulin Albumin/Globulin Ratio Triglycerides Cholesterol LDL Cholesterol, Calc VLDL Cholesterol, Calc HDL Cholesterol Cholesterol/HDL Ratio TSH 1.508 HCG, Qual Urine Color Urine Appearance Urine pH Ur Specific [place] Urine Protein Urine Glucose (UA) Urine Ketones Urine Blood Urine Nitrite Urine Bilirubin Urine Urobilinogen Ur Leukocyte Esterase Urine WBC (Auto) Urine RBC (Auto) U Hyaline Cast (Auto) U Epithel Cells (Auto) Urine Bacteria (Auto) Salicylates < 3.0 L Urine Opiates Screen Ur Methadone, Qual Acetaminophen < 3 L Urine Barbiturates Ur Phencyclidine (PCP) U Amphetamin/Meth Scrn MDMA (Ecstasy) Screen U Benzodiazepines Scrn Ur Cocaine Metabolite U Marijuana (THC) Screen U Marijuana THC Carboxy Drug Screen Comment Ethyl Alcohol mg/dL < 10.0 SARS-CoV-2, RNA, NAAT 02/19/22 02/19/22 02/19/22 17:35 17:35 17:35 WBC RBC Hgb Hct MCV MCH MCHC RDW Std Deviation RDW Coeff of Jimmy Plt Count MPV Immature Gran % (Auto) Neut % (Auto) Lymph % (Auto) Louisa % (Auto) Eos % (Auto) Baso % (Auto) Neut # (Auto) Lymph # (Auto) [place] # (Auto) Eos # (Auto) Baso # (Auto) Immature Gran # (Auto) Sodium Potassium Chloride Carbon Dioxide Anion Gap BUN Creatinine Est Cr Clr Drug Dosing Est GFR ( Amer) Est GFR (Non-Af Amer) BUN/Creatinine Ratio Glucose Fasting Glucose Calcium Total Bilirubin AST ALT Alkaline Phosphatase Total Protein Albumin Globulin Albumin/Globulin Ratio Triglycerides Cholesterol LDL Cholesterol, Calc VLDL Cholesterol, Calc HDL Cholesterol Cholesterol/HDL Ratio TSH HCG, Qual Urine Color Yellow Urine Appearance Clear Urine pH 6.5 Ur Specific [place] 1.023 Urine Protein Trace H Urine Glucose (UA) Negative Urine Ketones 1+ H Urine Blood Trace H Urine Nitrite Negative Urine Bilirubin Negative Urine Urobilinogen Negative Ur Leukocyte Esterase 2+ H Urine WBC (Auto) >30 H Urine RBC (Auto) 0-4 U Hyaline Cast (Auto) 10-30 H U Epithel Cells (Auto) >30 H Urine Bacteria (Auto) Negative Salicylates Urine Opiates Screen Neg Ur Methadone, Qual Neg Acetaminophen Urine Barbiturates Neg Ur Phencyclidine (PCP) Neg U Amphetamin/Meth Scrn Neg MDMA (Ecstasy) Screen Neg U Benzodiazepines Scrn Neg Ur Cocaine Metabolite Neg U Marijuana (THC) Screen Pos H U Marijuana THC Carboxy Drug Screen Comment Ethyl Alcohol mg/dL SARS-CoV-2, RNA, NAAT NEGATIVE 02/19/22 02/22/22 17:35 07:01 WBC RBC Hgb Hct MCV MCH MCHC RDW Std Deviation RDW Coeff of Jimmy Plt Count MPV Immature Gran % (Auto) Neut % (Auto) Lymph % (Auto) Louisa % (Auto) Eos % (Auto) Baso % (Auto) Neut # (Auto) Lymph # (Auto) Louis[place] # (Auto) Eos # (Auto) Baso # (Auto) Immature Gran # (Auto) Sodium Potassium Chloride Carbon Dioxide Anion Gap BUN Creatinine Est Cr Clr Drug Dosing Est GFR ( Amer) Est GFR (Non-Af Amer) BUN/Creatinine Ratio Glucose Fasting Glucose 85 Calcium Total Bilirubin AST ALT Alkaline Phosphatase Total Protein Albumin Globulin Albumin/Globulin Ratio Triglycerides 56 Cholesterol 145 LDL Cholesterol, Calc 88 VLDL Cholesterol, Calc 11 HDL Cholesterol 46 Cholesterol/HDL Ratio 3.2 TSH HCG, Qual Urine Color Urine Appearance Urine pH Ur Specific [place] Urine Protein Urine Glucose (UA) Urine Ketones Urine Blood Urine Nitrite Urine Bilirubin Urine Urobilinogen Ur Leukocyte Esterase Urine WBC (Auto) Urine RBC (Auto) U Hyaline Cast (Auto) U Epithel Cells (Auto) Urine Bacteria (Auto) Salicylates Urine Opiates Screen Ur Methadone, Qual Acetaminophen Urine Barbiturates Ur Phencyclidine (PCP) U Amphetamin/Meth Scrn MDMA (Ecstasy) Screen U Benzodiazepines Scrn Ur Cocaine Metabolite U Marijuana (THC) Screen U Marijuana THC Carboxy 696 H Drug Screen Comment SEE NOTE Ethyl Alcohol mg/dL SARS-CoV-2, RNA, NAAT Hospital Course (1) Psychosis: (2) Cannabis use, unspecified with psychotic disorder, unspecified: (3) Brief psychotic disorder: Plan 02/27/22: Continue with current medications and tx plan. Family meeting held. Needs outpatient services. 02/26/22: Continue with current medications and tx plan. 02/25/22: Continue with current medications and tx plan. 02/24/22: Discontinue risperidone. Start olanzapine 10mg qhs. Olanzapine 2.5mg BID prn for agitation/anxiety. 02/23/22: Increase risperidone to 1mg BID and 0.5mg BID prn. Discontinue ativan as seemed to make disorganization worse. 02/22/22: Continue with current medications and tx plan. 02/21/22: Increase risperidone to 0.5mg BID and continue with risperidone 0.25mg QID prn and ativan 0.5mg BID prn for severe agitation/distress. Fasting labs tomorrow. 02/20/22: The patient was admitted to the [facility]) on q15 min checks (behavioral with suicide precautions) for safety. The patient will participate in group, recreational, and milieu therapies and will be offered additional individual and family sessions as clinically appropriate. -Start risperidone 0.25mg BID, consider SSRI in the coming days depending on trajectory of symptoms and further diagnostic clarification -Fasting lipid panel and glucose labwork tomorrow morning Mental Health & Subst Abuse Tx Psychiatrist Name of Psychiatrist: Juliana Dominguez Psychiatrist's Date of Appointment with Psychiatrist: 03/11/22 Time of Appointment with Psychiatrist: 2:30 PM Psychiatric Appointment Comment: [address] [id number] Psychiatrist Release of Information: Obtained, Reviewed and Signed Therapist Name of Therapist: .[facility] Therapist's Date of Therapist Appointment: 03/03/22 Time of Therapist Appointment: 4:30 PM Therapy Appointment Comment: [address], [address], [place] [address] Therapist Release of Information: Obtained, Reviewed and Signed Reverser Name of Reverser: None Post Discharge Appointments Primary Care Physician Name Of Family Doctor: [facility] Time of Appointment with PCP: Follow up as needed. Provider Appointment Comment: [facility] Smoking Cessation Counseling Tobacco Cessation Medication Prescribed at Discharge: Not Applicable/Non-Smoker Other #1: Name of Aftercare Appointment: Student [facility]- Lou Mcintyre Phone Number of Aftercare Appointment: [phone] Date of Aftercare Appointment: 03/02/22 Time of Aftercare Appointment: 9:15am Aftercare Appointment Comment: zoom link sent to [employer] email Discharge Plan Discharge Items Patient Disposition: Home - Self-Care Reason For Visit: MDD Discharge Diagnosis: cannabis induced psychotic disorder Condition on Discharge: Fair Activity: Resume your previous activity Non-emergency contact: Primary Care Provider, Psychiatrist and Therapist Call non-emergency contact if: you have any medication questions and your symptoms worsen Follow-up/Referrals: PCP,NO [Primary Care Provider] - Diet: Regular Addtl Attending Provider Instructions: SPECIAL CARE INSTRUCTIONS: 1. Follow through with your scheduled aftercare appointments. If unable to keep an appointment, please call to reschedule. 2. Take your medication only as prescribed. Medication should not be changed or stopped without the approval of your doctor. In the event of worsening symptoms or concerns about side effects, contact your doctor immediately. 3. Utilize new healthy coping skills, anger management skills, and stress management skills learned during your hospitalization. Journal feelings and process them with a support person. Identify stressors or situations that may result in relapse, deterioration or inappropriate behaviors and develop a plan to deal with those issues. 4. If your coping skills are ineffective and you are in crisis, contact your outpatient providers for direction. If unable to reach your providers, please call the [facility] CRISIS LINE AT , go to the [facility] walk-in center at [address], [address], [place], or go to the closest Emergency Room. 5. Avoid alcohol and un-prescribed drugs. 6. You have been provided with the Mental Health Advance Directives Pamphlet for your review. 7. Your condition is stable for discharge to outpatient level of care, but recovery is an ongoing process. Ifthoughts to harm yourself or others return, follow the safety plan developed during your stay. Planning for a safe return home includes securing weapons. Our treatment team recommends weaponsbe removed from the home until your outpatient provider reassesses your progress. In rare cases where the items themselvescannot be removed, guns and ammunitionshould be secured separatelyand keys stored by a reliable personoutside of the home. If you were admitted on an involuntary commitment, the police or other legal authorities may be involved in this process. AFTERCARE APPOINTMENTS: * Please call your insurance company prior to your scheduled appointment to confirm your aftercare providers are covered. Take your insurance information to your appointments. WHO TO CALL AND WHEN: Medical Emergencies: For questions or emergencies related to your hospital stay, please contact the Inpatient Behavioral Health Unit at [phone]. A supervisor belt and link assembly is on-call 23/01 for the Behavioral Health Unit for emergencies At any time you feel your situation is an emergency, you may also call 911 immediately. Pending Studies at Discharge: No Stand-Alone Forms: My [facility], Smoking Cessation Medications and DC Order Prescriptions: New olanzapine [Zyprexa] 10 mg tablet 10 mg PO PM Qty: 30 0RF Discontinued amoxicillin 500 mg capsule Discharge Orders: Discharge Order (Routine); Ordered 02/28/22 Ordered By: Lucila Robison Admission Data Admit Date/Time: 02/19/22 20:36 Attending Provider: Lucila Robison Admit Provider: Lucila Robison Primary Care Provider: PCP,NO Other Interventions: Discharge Summary Assessment (RN) Last Done: 02/28/22 09:43 PSY Interdisciplinary Discharge Planning Last Done: 02/28/22 09:59 Coding Level of Care Code 13667 D/C day mgmt > 30 min Diagnoses Psychosis F29 Psychosis type: unspecified psychosis type Cannabis use, unspecified with psychotic disorder, unspecified F12.959 Brief psychotic disorder F23
--- NOTE | 2022-03-01 11:51 | Communication Note ---
Date of Service: March 01, 2022 father called stating that patient may now benefit from a medical withdrawal. liaison directed father that student must initiate process and reach out to student care and advocacy. This early in semester and since already notified, etc unlikely to need letter/additional documentation but either myself or Dr. Olsen could provide one when further along in the process.
== END 2022-02-28 10:22 | disposition home or self-care (01) | DRG 885 ==
LOC: ED 17:05 → 3S 20:36